=== PATIENT | female | born 1970 | race African-American/Black ===

== ENCOUNTER → 2016-08-20 | Outpatient (CLI) | payer OTHER ==
[2016-08-20 17:20] LABS: ABSOLUTE EOSINOPHILS # (AUTO) 0.2 10^3/uL (0.0-0.6); ABSOLUTE LYMPHOCYTES (AUTO) 1.9 10^3/uL (0.5-4.7); ABSOLUTE MONOCYTES (AUTO) 0.5 10^3/uL (0.1-1.4); ABSOLUTE NEUT (AUTO) 2.1 10^3/uL (1.7-8.2); BASOPHILS % (AUTO) 0.6 % (0-2); EOSINOPHILS % (AUTO) 4.9 % (0-6); HEMATOCRIT 33.7 % (36.0-47.0); HEMOGLOBIN 11.3 g/dL (12.0-15.5); HGB HCT DIFFERENCE 0.2; MEAN CORPUSCULAR HEMOGLOBIN 27.2 pg (27.0-33.4); MEAN CORPUSCULAR HGB CONC 33.6 g/dL (32.0-36.0); MEAN CORPUSCULAR VOLUME 81 fl (80-97); MONOCYTES % (AUTO) 9.9 % (3-13); RED BLOOD COUNT 4.17 10^6/uL (3.72-5.28); RED CELL DISTRIBUTION WIDTH 14.7 % (11.5-14.0); SEGMENTED NEUTROPHILS % (AUTO) 43.6 % (42-78); WHITE BLOOD COUNT 4.7 10^3/uL (4.0-10.5)
[2016-08-20 17:37] LABS: ANION GAP 11 (5-19); BLOOD UREA NITROGEN 12 mg/dL (7-20); CALCIUM 9.6 mg/dL (8.4-10.2); CARBON DIOXIDE 27 mmol/L (22-30); CHLORIDE 103 mmol/L (98-107); CREATININE RESULT 0.55 mg/dL (0.52-1.25); GLUCOSE 96 mg/dL (75-110); POTASSIUM 4.2 mmol/L (3.6-5.0); SODIUM 141.1 mmol/L (137-145)
== END ==
LOC: OD 15:19
PROVIDERS: ATTEND Internal Medicine Nephrology
DX: N05.2 Unspecified nephritic syndrome with diffuse membranous glomerulonephritis (principal); R80.9 Proteinuria, unspecified; D50.9 Iron deficiency anemia, unspecified; E55.9 Vitamin D deficiency, unspecified
CPT/HCPCS: 36415; 80048; 82306; 82728; 83540; 83550; 85025

== ENCOUNTER 2017-05-08 17:26 | Emergency (ER) | payer OTHER ==
[2017-05-08] MEDS ORDERED: VANCOMYCIN HCL INJ 1000 MG VIAL IV ONE ×2 (17:50→19:00)
--- NOTE | 2017-05-08 17:52 | ER Document Report ---
ED General - General Chief Complaint: Insect Bite Stated Complaint: LEFT LEG PAIN Time Seen by Provider: 05/08/17 17:39 Notes: 47-year-old female with "prediabetes" presents with left leg pain redness and swelling with fever and chills. First started 4 days ago, she was placed on ceftriaxone and cefuroxime 2 days ago by her primary care. She has been continuing to work and stand on her leg all day and has not been elevating it. Fever and chills have subsided. Her primary care saw the leg today and send her to the ER because the symptoms were resolving. Her primary care was also concerned about "blood clot." She denies varicosities or risk factors for clotting. When asked if she has a history of blood clots she states that one time her boyfriend gave her a Hickey which caused a "blood clot in my throat." She has no history of deep vein thrombosis. TRAVEL OUTSIDE OF THE [place] IN LAST 30 DAYS: No - Related Data Allergies/Adverse Reactions: ibuprofen [From Motrin] Allergy (Verified 05/08/17 17:29) metronidazole [From Flagyl] Allergy (Verified 05/08/17 17:29) Metronidazole HCl [From Flagyl] Allergy (Verified 05/08/17 17:29) seafood Allergy (Uncoded 08/07/12 14:02) Past Medical History - Social History Smoking Status: Unknown if Ever Smoked Family History: None - Past Medical History Cardiac Medical History: Reports: Hx Hypertension - meds x5 years, Lisinopril Rx 'ed to treat renal disease Denies: Hx Coronary Artery Disease, Hx Heart Attack Pulmonary Medical History: Denies: Hx Asthma, Hx Bronchitis, Hx COPD, Hx Pneumonia Neurological Medical History: Denies: Hx Cerebrovascular Accident, Hx Seizures Musculoskeltal Medical History: Denies Hx Arthritis - Immunizations Hx Diphtheria, Pertussis, Tetanus Vaccination: No Review of Systems - Review of Systems Notes: REVIEW OF SYSTEMS GEN: Denies fever, chills, weight loss ENT: Denies sore throat, nasal discharge, ear pain EYES: Denies blurry vision, eye pain, discharge CV: Denies chest pain, palpitations, edema RESP: Denies cough, shortness of breath, wheezing GI: Denies abdominal pain, nausea, vomiting, diarrhea MSK: Right leg pain SKIN: Red rash LYMPH: Denies swollen glands/lymph nodes NEURO: Denies headache, focal weakness or numbness, dizziness PSYCH: Denies depression, suicidal or homicidal ideation PHYSICAL EXAMINATION General: No acute distress, well-nourished Head: Atraumatic, normocephalic ENT: Mouth normal, oropharynx moist, no exudates or tonsillar enlargement Eyes: Conjunctiva normal, pupils equal, lids normal Neck: No JVD, supple, no guarding CVS: Normal rate, regular rhythm, no murmurs Resp: No resp distress, equal and normal breath sounds bilaterally GI: Nondistended, soft, no tenderness to palpation, no rebound or guarding Ext: Bilateral chronic appearing lower extremity edema with shiny skin, the left leg is slightly worse with the swelling, and there is a confluent erythematous rash from the sock line at the ankle up to the proximal calf which is tender and blanching. No bullae no abscesses no drainage. No Homans sign and no tenderness in the popliteal fossa. Back: No CVA or midline TTP Skin: No rash, warm Lymphatic: No lymphadeopathy noted Neuro: Awake, alert. Face symmetric. GCS 15. Physical Exam - Vital signs Vitals: Temp Pulse Resp BP Pulse Ox 98.4 F 106 H 14 143/91 H 98 05/08/17 17:36 05/08/17 17:36 05/08/17 17:36 05/08/17 17:36 05/08/17 17:36 Course - Re-evaluation Re-evalutation: Patient presents with left lower extremity cellulitis. Mildly tachycardic but not febrile. Appears nontoxic. Her primary was concerned for DVT, however her clinical picture perfectly matches cellulitis and she does not have risk factors for blood clots. I think the reason for lack of resolution is a combination of lack of elevation on her part as well as probable antibiotic choice. I do not think she is septic and I do not think this is a necrotizing infection. She will receive lab testing, and Accu-Chek to check her blood sugar as well as a dose of vancomycin. At that point we will decide whether she can go home with augmented antibiotic coverage and aggressive elevation or needs to be admitted. I do not believe she requires an ultrasound at this time. 05/08/17 17:54 05/08/17 18:50 Patient receiving vancomycin. Legs elevated. Labs are normal. Patient will be discharged home with Bactrim and Keflex and aggressive elevation. She will follow up with primary care with her scheduled appointment on Friday. All questions answered. I have discussed with the patient there likely diagnosis, aftercare plan, follow-up plans and my usual and customary return precautions. They verbalized understanding of this. - Vital Signs Vital signs: Temp Pulse Resp BP Pulse Ox 98.4 F 106 H 14 143/91 H 98 05/08/17 17:36 05/08/17 17:36 05/08/17 17:36 05/08/17 17:36 05/08/17 17:36 - Laboratory Result Diagrams: 05/08/17 17:57 05/08/17 17:57 Laboratory results interpreted by me: 05/08/17 17:57 Hgb 11.4 L Hct 34.0 L RDW 14.3 H Discharge - Discharge Clinical Impression: Cellulitis of left lower extremity Condition: Good Disposition: HOME, SELF-CARE Instructions: Cellulitis ([facility]) Additional Instructions: I am increasing the coverage of your antibiotics and I would like you to take the next 3 days off of work, and aggressively elevate her leg above your heart for 4 hours a day at minimum. If you are still not better after 3 days he can return to the emergency room for further workup. Please follow-up with your primary care doctor to have your leg reassessed within 2-3 days. Take Tylenol and/or ibuprofen for pain. Prescriptions: Cephalexin Monohydrate [Keflex 500 mg Capsule] 500 mg PO Q6H 20 Days capsule Sulfamethoxazole/Trimethoprim [Bactrim Ds Tablet] 1 each PO BID #20 tablet Forms: Return to Work
[2017-05-08 18:15] LABS: ABSOLUTE EOSINOPHILS # (AUTO) 0.1 10^3/uL (0.0-0.6); ABSOLUTE LYMPHOCYTES (AUTO) 3.2 10^3/uL (0.5-4.7); ABSOLUTE MONOCYTES (AUTO) 0.7 10^3/uL (0.1-1.4); ABSOLUTE NEUT (AUTO) 4.6 10^3/uL (1.7-8.2); BASOPHILS % (AUTO) 0.4 % (0-2); EOSINOPHILS % (AUTO) 1.7 % (0-6); HEMOGLOBIN 11.4 g/dL (12.0-15.5); HGB HCT DIFFERENCE 0.2; LYMPHOCYTES % (AUTO) 36.7 % (13-45); MEAN CORPUSCULAR HEMOGLOBIN 27.4 pg (27.0-33.4); MEAN CORPUSCULAR HGB CONC 33.6 g/dL (32.0-36.0); MEAN CORPUSCULAR VOLUME 82 fl (80-97); MONOCYTES % (AUTO) 8.3 % (3-13); RED BLOOD COUNT 4.17 10^6/uL (3.72-5.28); RED CELL DISTRIBUTION WIDTH 14.3 % (11.5-14.0); SEGMENTED NEUTROPHILS % (AUTO) 52.9 % (42-78); WHITE BLOOD COUNT 8.6 10^3/uL (4.0-10.5)
[2017-05-08 18:41] LABS: ANION GAP 14 (5-19); BLOOD UREA NITROGEN 11 mg/dL (7-20); CALCIUM 9.3 mg/dL (8.4-10.2); CARBON DIOXIDE 24 mmol/L (22-30); CHLORIDE 106 mmol/L (98-107); CREATININE RESULT 0.82 mg/dL (0.52-1.25); GLUCOSE 100 mg/dL (75-110); POTASSIUM 3.6 mmol/L (3.6-5.0); SODIUM 144.1 mmol/L (137-145)
[2017-05-08 20:58] VITALS: BP 146/100
--- NOTE | 2017-05-10 09:40 | ER Document Report ---
Doctor's Note Notes: 05/10/17 09:40 Hetal called concerning the Keflex prescription for 20 days. Instructed them to make of her 20 pills or 5 days.
== END 2017-05-08 20:56 | disposition home or self-care (01) ==
LOC: ER 17:26
DX: L03.116 Cellulitis of left lower limb (principal); M79.605 Pain in left leg; M79.89 Other specified soft tissue disorders; R50.9 Fever, unspecified
CPT/HCPCS: 99282; 96365; 96366; 36415; 87040; 85025; 80048; J3370

== ENCOUNTER 2017-05-14 20:15 | Inpatient (IN) | payer OTHER ==
[2017-05-14 23:00] LABS: ABSOLUTE EOSINOPHILS # (AUTO) 0.1 10^3/uL (0.0-0.6); ABSOLUTE LYMPHOCYTES (AUTO) 2.1 10^3/uL (0.5-4.7); ABSOLUTE MONOCYTES (AUTO) 0.6 10^3/uL (0.1-1.4); ABSOLUTE NEUT (AUTO) 5.9 10^3/uL (1.7-8.2); BASOPHILS % (AUTO) 0.4 % (0-2); EOSINOPHILS % (AUTO) 1.5 % (0-6); LYMPHOCYTES % (AUTO) 23.8 % (13-45); MEAN CORPUSCULAR HEMOGLOBIN 27.3 pg (27.0-33.4); MEAN CORPUSCULAR HGB CONC 33.4 g/dL (32.0-36.0); MEAN CORPUSCULAR VOLUME 82 fl (80-97); MONOCYTES % (AUTO) 7.4 % (3-13); RED BLOOD COUNT 3.69 10^6/uL (3.72-5.28); RED CELL DISTRIBUTION WIDTH 14.3 % (11.5-14.0); SEGMENTED NEUTROPHILS % (AUTO) 66.9 % (42-78); WHITE BLOOD COUNT 8.8 10^3/uL (4.0-10.5)
[2017-05-14] MEDS ORDERED: MORPHINE SULFATE 10 MG/ML INJ IV ONE (23:00)
[2017-05-14 23:06] LABS: ANION GAP 10 (5-19); BLOOD UREA NITROGEN 17 mg/dL (7-20); CALCIUM 9.7 mg/dL (8.4-10.2); CARBON DIOXIDE 23 mmol/L (22-30); CHLORIDE 106 mmol/L (98-107); CREATININE RESULT 1.14 mg/dL (0.52-1.25); GLUCOSE 117 mg/dL (75-110); POTASSIUM 3.9 mmol/L (3.6-5.0); SODIUM 138.9 mmol/L (137-145)
[2017-05-14 23:41] LABS: APPEARANCE,URINE SLIGHTLY-CLOUDY; BILIRUBIN,URINE NEGATIVE (NEGATIVE); GLUCOSE, URINE NEGATIVE (NEGATIVE); KETONES,URINE NEGATIVE (NEGATIVE); LEUKOCYTE ESTERASE,URINE NEGATIVE (NEGATIVE); NITRITE,URINE NEGATIVE (NEGATIVE); PROTEIN,URINE >=500 mg/dL (NEGATIVE); URINE SPECIFIC GRAVITY 1.025; UROBILINOGEN,URINE NEGATIVE mg/dL (<2.0)
[2017-05-15 00:12] LABS: ALANINE AMINOTRANSFERASE 32 U/L (9-52); ALBUMIN 3.2 g/dL (3.5-5.0); ALKALINE PHOSPHATASE 89 U/L (38-126); ASPARTATE AMINO TRANSFERASE 13 U/L (14-36); TOTAL PROTEIN 6.8 g/dL (6.3-8.2)
--- NOTE | 2017-05-15 00:15 | ER Document Report ---
ED General - General Chief Complaint: Leg Swelling Stated Complaint: ABNORMAL LABS,LEG SWELLING Time Seen by Provider: 05/14/17 22:47 Notes: Patient is a 47-year-old female presents with complaint of cellulitis. She has been on antibiotics for almost a week. She has been on Bactrim and Keflex. She had an ultrasound of the leg yesterday which showed no evidence of DVT. She denies any fevers during this entire course. She says the redness she has has darkened and is not as red however her swelling and edema continues to worsen throughout her leg. She does have a previous history of nephrotic syndrome. She is follow-up with Dr. Bo for this. She said typically the edema in her legs pretty equal but her left leg is much more swollen than her right at this point. No difficulty breathing. No other complaints at this time. She is unsure which type of nephrotic syndrome she has. He denies history of lupus, rheumatoid disease, or other autoimmune diseases. TRAVEL OUTSIDE OF THE [place] IN LAST 30 DAYS: No - Related Data Allergies/Adverse Reactions: ibuprofen [From Motrin] Allergy (Verified 05/14/17 20:16) metronidazole [From Flagyl] Allergy (Verified 05/14/17 20:16) Metronidazole HCl [From Flagyl] Allergy (Verified 05/14/17 20:16) seafood Allergy (Uncoded 05/14/17 20:16) Past Medical History - Social History Smoking Status: Unknown if Ever Smoked Frequency of alcohol use: None Drug Abuse: None Family History: None Patient has suicidal ideation: No Patient has homicidal ideation: No - Past Medical History Cardiac Medical History: Reports: Hx Hypertension - meds x5 years, Lisinopril Rx 'ed to treat renal disease Denies: Hx Coronary Artery Disease, Hx Heart Attack Pulmonary Medical History: Denies: Hx Asthma, Hx Bronchitis, Hx COPD, Hx Pneumonia Neurological Medical History: Denies: Hx Cerebrovascular Accident, Hx Seizures Renal/ Medical History: Denies: Hx Peritoneal Dialysis Musculoskeltal Medical History: Denies Hx Arthritis Past Surgical History: Reports: Hx Hysterectomy - Immunizations Hx Diphtheria, Pertussis, Tetanus Vaccination: No Review of Systems - Review of Systems Notes: My Normal Review Basic REVIEW OF SYSTEMS: CONSTITUTIONAL : Denies fever, chills, or sweats. Denies recent illness. EENT: Denies eye, ear, throat, or mouth pain or symptoms. Denies nasal or sinus congestion. RESPIRATORY: Denies cough, cold, or chest congestion. Denies shortness of breath, difficulty breathing, or wheezing. GASTROINTESTINAL: Denies abdominal pain. Denies nausea, vomiting, or diarrhea. Denies constipation. Last BM: MUSCULOSKELETAL: Swelling in left leg. SKIN: Denies rash or skin lesions. NEUROLOGICAL: Denies altered mental status or loss of consciousness. Denies headache. Denies weakness or paralysis or loss of use of either side. Denies problems with gait or speech. Denies sensory or motor loss. ALL OTHER SYSTEMS REVIEWED AND NEGATIVE. Physical Exam - Vital signs Vitals: Temp Pulse Resp BP Pulse Ox 98.9 F 103 H 18 150/97 H 100 05/14/17 20:35 05/14/17 20:35 05/14/17 20:35 05/14/17 20:35 05/14/17 20:35 - Notes Notes: General Appearance: Well nourished, alert, cooperative, no acute distress, no obvious discomfort. Vitals: reviewed, See vital signs table. Head: no swelling or tenderness to the head Eyes: PERRL, EOMI, Conjuctiva clear Mouth: No decreasd moisture Lungs: No wheezing, No rales, No rhonci, No accessory muscle use, good air exchange bilaterally. Heart: Normal rate, Regular rythm, No murmur, no rub Abdomen: Normal BS, soft, No rigidity, No abdominal tenderness, No guarding, no rebound, no abdominal masses, no organomegaly Extremities: strength 5/5 in all extremities, good pulses in all extremities, left leg is very swollen and tight. There is an area of faint redness on the medial midportion of the lower leg. The redness does not extend with the swelling itself. Pulses are intact. Right leg has some edema but is much less in comparison to the left leg. Skin: warm, dry, appropriate color, no rash Neuro: speech clear, oriented x 3, normal affect, responds appropriately to questions. Course - Re-evaluation Re-evalutation: 05/15/17 00:14 Patient has no cytosis no fever. Clinically her leg may have initially had a cellulitis by do not think that is a ongoing problem. My concern is that she is developing recurrence for nephrotic syndrome being that she has so much edema in her legs and her protein and urine is greater than 500. I did consider vasculitis as well; however, patient has no history of autoimmune disease. Patient is followed by Dr. Parker, environmental safety specialist. I did discuss the case with our hospitalist, Dr. Lobo, who agrees to accept the patient for further management and treatment workup of her leg swelling. Dictation of this chart was performed using voice recognition software; therefore, there may be some unintended grammatical errors. - Vital Signs Vital signs: Temp Pulse Resp BP Pulse Ox 98.9 F 103 H 18 150/97 H 100 05/14/17 20:35 05/14/17 20:35 05/14/17 20:35 05/14/17 20:35 05/14/17 20:35 - Laboratory Result Diagrams: 05/14/17 22:33 05/14/17 22:33 Laboratory results interpreted by me: 05/14/17 05/14/17 05/14/17 22:33 22:33 23:03 RBC 3.69 L Hgb 10.0 L Hct 30.0 L RDW 14.3 H Est GFR (Non-Af Amer) 51 L Glucose 117 H Urine Protein >=500 H Discharge - Discharge Clinical Impression: Leg swelling Condition: Stable Disposition: ADMITTED INPATIENT Admitting Provider: Hospitalist Unit Admitted: Medical Floor
[2017-05-15 00:23] LABS: BILIRUBIN,TOTAL < 0.1 mg/dL (0.2-1.3)
[2017-05-15] MEDS ORDERED: ACETAMINOPHEN 325 MG TABLET PO PRN (00:48)
[2017-05-15] MEDS ORDERED: ONDANSETRON HCL INJ/PF 4 MG/2 ML SDV IV PRN (00:48)
[2017-05-15 01:29] LABS: C-REACTIVE PROTEIN 15.6 mg/L (<10.0); URIC ACID 5.1 mg/dL (2.5-7.5)
--- NOTE | 2017-05-15 02:50 | PDOC H&P ---
History of Present Illness Admission Date/PCP: 05/15/17 00:23 Fabiana TROY MD History of Present Illness: DORIAN BELTRAN is a 47 year old female with past medical history of hypertension , anxiety, prediabetes, an unknown type of kidney disease who presents to the emergency department with complaints of cellulitis. Patient reports that approximately a week ago she woke up with a splotchy red rash on her left lower extremity and as this has progressed it has become increasingly swollen. She reports that she was initially placed on some antibiotics that she cannot recall the name of from her primary care physician, but on 05 10 she reported to the emergency department was placed on Septra and Keflex. Patient reports that last Friday she had fevers and chills but has had none since that time. She reports that the overall redness has improved but she feels that the swelling in her legs has gotten worse. She reports that the swelling is almost painful. Patient is found to have greater than 500 of protein in her urine and bilateral lower extremity edema. Patient has seen Dr. Parker of nephrology in the past. She is referred to the hospitalist service for possible nephrotic syndrome. Patient's medications are at bedside and include Lasix, losartan, hydralazine, Lexapro, and Norvasc as well as Keflex and Bactrim. Patient's medications are currently undergoing reconciliation. Current list is automatically generated by [employer] and does not reflect an accurate description of her medications. Due to the urgent/emergent nature of her condition, she is admitted without a full list. Past Medical History Cardiac Medical History: Reports: Hypertension - meds x5 years, Lisinopril Rx' ed to treat renal disease Denies: Coronary Artery Disease, Myocardial Infarction Pulmonary Medical History: Denies: Asthma, Bronchitis, Chronic Obstructive Pulmonary Disease (COPD), Pneumonia Neurological Medical History: Denies: Seizures Endocrine Medical History: Reports: Obesity, Other - Prediabetes Renal/ Medical History: Reports: Other - Some type of kidney disease Musculoskeltal Medical History: Denies: Arthritis Hematology: Reports: Anemia - currently p.o. iron daily Past Surgical History Past Surgical History: Reports: Cholecystectomy, Hysterectomy Social History Smoking Status: Never Smoker Frequency of Alcohol Use: Social Hx Recreational Drug Use: No Hx Prescription Drug Abuse: No - Advance Directive Resuscitation Status: Full Code Surrogate healthcare decision maker:: Pritesh Rouse, daughter Family History Family History: DM, Hypertension, Malignancy Parental Family History Reviewed: Yes Children Family History Reviewed: Yes Sibling(s) Family History Reviewed.: Yes Medication/Allergy Home Medications: Ferrous Sulfate PO DAILY 08/07/12 Furosemide [Lasix 40 mg Tablet] 20 mg PO BID 08/07/12 Hydrochlorothiazide [Hydrodiuril 25 mg Tablet] 25 mg PO QAM 08/07/12 Potassium Chloride [Klor-Con] 20 meq PO QAM 08/07/12 Atorvastatin Calcium [Lipitor 40 mg Tablet] 40 mg PO QHS 08/14/12 Losartan Potassium [Cozaar 50 Mg Tablet] 50 mg PO DAILY 08/14/12 Oxycodone HCl/Acetaminophen [Percocet 5-325 mg Tablet] 1 - 2 tab PO ASDIR PRN Cephalexin Monohydrate [Keflex 500 mg Capsule] 500 mg PO Q6H 20 Days capsule Sulfamethoxazole/Trimethoprim [Bactrim Ds Tablet] 1 each PO BID #20 tablet 05/08 Allergies/Adverse Reactions: ibuprofen [From Motrin] Allergy (Verified 05/14/17 20:16) metronidazole [From Flagyl] Allergy (Verified 05/14/17 20:16) Metronidazole HCl [From Flagyl] Allergy (Verified 05/14/17 20:16) seafood Allergy (Uncoded 05/14/17 20:16) Review of Systems Constitutional: PRESENT: as per HPI, chills, fever(s). ABSENT: headache(s), weight gain, weight loss Eyes: ABSENT: visual disturbances Ears: ABSENT: hearing changes Cardiovascular: PRESENT: edema. ABSENT: chest pain, dyspnea on exertion, orthropnea, palpitations Respiratory: ABSENT: cough, hemoptysis Gastrointestinal: ABSENT: abdominal pain, constipation, diarrhea, hematemesis, hematochezia, nausea, vomiting Genitourinary: ABSENT: dysuria, hematuria Musculoskeletal: ABSENT: joint swelling Integumentary: PRESENT: erythema, lesions, rash. ABSENT: pruritus, wounds Neurological: ABSENT: abnormal gait, abnormal speech, confusion, dizziness, focal weakness, syncope Psychiatric: ABSENT: anxiety, depression, homidical ideation, suicidal ideation Endocrine: ABSENT: cold intolerance, heat intolerance, polydipsia, polyuria Hematologic/Lymphatic: ABSENT: easy bleeding, easy bruising Physical Exam Vital Signs: Temp Pulse Resp BP Pulse Ox 98.7 F 89 16 137/78 H 96 05/15/17 02:11 05/15/17 02:11 05/15/17 02:11 05/15/17 02:11 05/15/17 02:11 General appearance: PRESENT: no acute distress, morbidly obese, well-developed, well-nourished Head exam: PRESENT: atraumatic, normocephalic Eye exam: PRESENT: conjunctiva pink, EOMI, PERRLA. ABSENT: scleral icterus Ear exam: PRESENT: normal external ear exam Mouth exam: PRESENT: moist, tongue midline Neck exam: ABSENT: carotid bruit, JVD, lymphadenopathy, thyromegaly Respiratory exam: PRESENT: clear to auscultation cora. ABSENT: rales, rhonchi, wheezes Cardiovascular exam: PRESENT: RRR. ABSENT: diastolic murmur, rubs, systolic murmur Pulses: PRESENT: normal dorsalis pedis pul Vascular exam: PRESENT: normal capillary refill GI/Abdominal exam: PRESENT: normal bowel sounds, soft. ABSENT: distended, guarding, mass, organolmegaly, rebound, tenderness Rectal exam: PRESENT: deferred Extremities exam: PRESENT: calf tenderness - Left lower extremity, full ROM, tenderness - Left lower extremity, +2 edema - Right lower extremity to mid will , other - 3+ edema of her left lower extremity. ABSENT: clubbing Neurological exam: PRESENT: alert, awake, oriented to person, oriented to place , oriented to time, oriented to situation, CN II-XII grossly intact. ABSENT: motor sensory deficit Psychiatric exam: PRESENT: appropriate affect, normal mood. ABSENT: homicidal ideation, suicidal ideation Skin exam: PRESENT: dry, intact, rash - Mild blotchy erythema on the medial pretibial area without confluence or induration, warm. ABSENT: cyanosis Results Laboratory Results: 05/14/17 05/14/17 05/14/17 22:33 22:33 22:33 WBC 8.8 Hgb 10.0 L Hct 30.0 L Plt Count 406 ESR Sodium 138.9 Potassium 3.9 Chloride 106 Carbon Dioxide 23 BUN 17 Creatinine 1.14 Est GFR ( Amer) > 60 Glucose 117 H Total Bilirubin < 0.1 L C-Reactive Protein Albumin 3.2 L TSH Urine Protein Urine WBC (Auto) U Hyaline Cast (Auto) Granular Casts (Auto) 05/14/17 05/14/17 05/14/17 22:33 22:33 23:03 WBC Hgb Hct Plt Count ESR Sodium Potassium Chloride Carbon Dioxide BUN Creatinine Est GFR ( Amer) Glucose Total Bilirubin C-Reactive Protein 15.6 H Albumin TSH 4.48 Urine Protein >=500 H Urine WBC (Auto) 8 U Hyaline Cast (Auto) 4 Granular Casts (Auto) 44 05/15/17 00:29 WBC Hgb Hct Plt Count ESR 109 H Sodium Potassium Chloride Carbon Dioxide BUN Creatinine Est GFR ( Amer) Glucose Total Bilirubin C-Reactive Protein Albumin TSH Urine Protein Urine WBC (Auto) U Hyaline Cast (Auto) Granular Casts (Auto) Assessment & Plan - Diagnosis (1) Nephrotic syndrome Is this a current diagnosis for this admission?: Yes Plan: Concerns for nephrotic syndrome in this patient. Patient has low albumin, elevated protein in the urine, and edema. Will obtain a 24-hour urine for protein and creatinine. Obtain VENITA Consult Dr. Parker whom she has seen in the past Place patient on Lasix and losartan (2) Cellulitis of left lower extremity Is this a current diagnosis for this admission?: Yes Plan: Patient has shown the serial pictures from her phone and it appears as though her cellulitis is actually improved over the past week. Will continue patient on Ancef (3) Hypertension Qualifiers: Hypertension type: unspecified Qualified Code(s): I10 - Essential (primary ) hypertension Is this a current diagnosis for this admission?: Yes Plan: Continue patient's home medications Patient was recently started on hydralazine, consider drug-induced lupus. (4) Leg swelling Is this a current diagnosis for this admission?: Yes Plan: Obtain lower extremity Dopplers (5) Morbid obesity with BMI of 40.0-44.9, adult Is this a current diagnosis for this admission?: Yes Plan: Patient is advised to engage actively in weight loss and increase activity as tolerated under the guidance of her primary care physician. - Time Time Spent: 50 to 70 Minutes Medications reviewed and adjusted accordingly: Yes Within: Other - Inpatient Certification Based on my medical assessment, after consideration of the patient's comorbidities, presenting symptoms, or acuity I expect that the services needed warrant INPATIENT care.: Yes - Upon improvement of symptomatology I certify that my determination is in accordance with my understanding of Medicare's requirements for reasonable and necessary INPATIENT services [42 CFR 412.3e].: Yes Medical Necessity: Risk of Complication if Not Cared For in Hospital, Risk of Diagnosis Which Will Require Inpatient Eval/Care/Monitoring Post Hospital Care: D/C Network Architect Manager Documentation
[2017-05-15] MEDS ORDERED: CEFAZOLIN INJ 1 GM VIAL ONE (03:24)
[2017-05-15] MEDS: CEFAZOLIN 2 GM/D5W RTU 2 GM/50 ML RTUPB IV SCH ×3 (05:23→17:23)
[2017-05-15] MEDS: HEPARIN SOD (PORCINE) 5,000 UNIT/ML 1 ML SYRINGE SUBCUT SCH ×3 (05:40→22:47)
[2017-05-15 06:37] LABS: CHOLESTEROL 212.66 mg/dL (0-200); Direct HDL 58 mg/dL (>40); TRIGLYCERIDES 101 mg/dL (<150)
[2017-05-15 06:47] LABS: DIRECT LDL 126 mg/dL (<100)
[2017-05-15] MEDS: OXYCODONE-ACETAMINOPHEN 5-325 MG TABLET PO PRN (10:51)
[2017-05-15] MEDS: FUROSEMIDE 40 MG TABLET PO SCH ×2 (10:52→17:22)
[2017-05-15] MEDS: LOSARTAN POTASSIUM 50 MG TABLET PO SCH ×2 (10:53→22:47)
[2017-05-15] MEDS: MORPHINE SULFATE 10 MG/ML INJ IV PRN ×2 (12:36→22:47)
--- NOTE | 2017-05-15 16:37 | PDOC PROGRESS REPORT ---
Subjective Progress Note for:: 05/15/17 Subjective:: This is a follow-up visit for left lower extremity cellulitis Reason For Visit: NEPHROTIC SYNDROME Physical Exam Vital Signs: Temp Pulse Resp BP Pulse Ox 98.7 F 89 12 111/78 93 05/15/17 07:55 05/15/17 07:55 05/15/17 07:55 05/15/17 07:55 05/15/17 07:55 Intake & Output 05/14/17 05/15/17 05/16/17 06:59 06:59 06:59 Intake Total 0 Output Total 0 Balance 0 Weight 108.2 kg GENERAL: This is a well-developed well-nourished obese -Portuguese female resting in bed currently in no acute distress. HEART: Regular rate and rhythm. No murmurs, rubs or gallops. LUNGS: Clear to auscultation bilaterally with equal rise and fall of the chest. ABDOMEN: Soft, nontender, nondistended with normoactive bowel sounds EXTREMETIES: No clubbing, cyanosis or edema on the left. There is 2+ pitting edema on the right foot extending all the way up to the shins.. 2+ peripheral pulses in the right lower extremity. The left lower extremity pulses cannot be palpated secondary to edema. Negative Homans NEURO: Awake, alert and oriented 3. Cranial nerves II through XII are grossly intact. Skin: Left lower extremity is edematous and slightly erythematous. Resolving erythema is noted from the ankle up through the will. No evidence of fungal elements between the toes. Results Laboratory Results: 05/15/17 06:11 Triglycerides 101 Cholesterol 212.66 H LDL Cholesterol Direct 126 H VLDL Cholesterol 20.0 HDL Cholesterol 58 Assessment & Plan - Diagnosis (1) Hypertension Qualifiers: Hypertension type: unspecified Qualified Code(s): I10 - Essential (primary ) hypertension Is this a current diagnosis for this admission?: Yes Plan: Continue home meds (2) Leg swelling Is this a current diagnosis for this admission?: Yes Plan: Homans sign negative. We will see how her leg looks in the morning. (3) Morbid obesity with BMI of 40.0-44.9, adult Is this a current diagnosis for this admission?: Yes Plan: Weight loss through dietary changes and exercise as tolerated (4) Nephrotic syndrome Is this a current diagnosis for this admission?: Yes Plan: 24 hour urine protein has been ordered. Awaiting nephrology consultation. (5) Cellulitis of left lower extremity Is this a current diagnosis for this admission?: Yes Plan: Appears to be much improved according to the patient and by description from the H&P. Continue current antibiotics. I did not note any fungal elements of the toes or any open wounds to account for why the patient cellulitis happen. Most likely she suffered a neck or scraped that she was unaware of. - Time Time Spent with patient: 15-24 minutes
--- NOTE | 2017-05-15 17:00 | XCELERA REPORT ---
[address] [address] Lower Extremity Venous Evaluation Name: DORIAN BELTRAN Age: 47 yrs Gender: Female : 1970 Patient Status: [facility] Study Date: 05/15/2017 08:53 AM Procedure: Color flow and duplex imaging bilaterally of the veins of the lower extremities as well as the Common Femoral veins. Reason For Study: concern for dvt Ordering Physician: PINKY PAPPAS Performed By: Renate Crouch Right Sided Venous Evaluation Normal vessel filling wall to wall, compression and augmentation as well as Colour flow down to the infrageniculate veins. Left Sided Venous Evaluation Normal vessel filling wall to wall, compression and augmentation as well as Colour flow down to the infrageniculate veins. Interpretation Summary No duplex evidence of DVT or obstruction in the bilateral lower extremities. : PINKY PAPPAS > Fuentes Rogers
--- NOTE | 2017-05-15 19:09 | PDOC CONSULTATION ---
Consultation Consult Date: 05/15/17 Attending physician:: PINKY PAPPAS Consult reason:: I was asked me Dr. Pappas to see the patient due to possible nephrotic syndrome. History of Present Illness Admission Date/PCP: 05/15/17 00:23 MILES TROY MD History of Present Illness: DORIAN BELTRAN is a 47 year old female with past medical history of hypertension , anxiety, prediabetes, membranous nephropathy who presents to the emergency department with complaints of cellulitis. Patient reports that approximately 10 days ago she woke up with a splotchy red rash on her left lower extremity and as this has progressed it has become increasingly swollen. She reports that she was initially placed on some antibiotics that she cannot recall the name of from her primary care physician which she took only for a couple of days , but on 05/10 she reported to the emergency department was placed on Septra and Keflex. Patient reports that last Friday she had fevers and chills but has had none since that time. 2 days ago she followed up with her primary care physician in some blood work was obtained along with a left leg ultrasound looking for DVT. She was told that there was no blood clot at that time. Yesterday the blood work apparently got resulted and she got a call from her primary care provider to go to the emergency room. She reports that the overall redness has improved but she feels that the swelling in her legs has gotten worse. She reports that the swelling is almost painful. Patient is found to have greater than 500 of protein in her urine and bilateral lower extremity edema. She was then admitted and was started on IV Ancef. A 24-hour urine collection was also started this morning. While her left leg has been swollen with erythematous warm lesions her right leg has been okay since her problem with the left leg started. She denied any shortness of breath, any more fevers, nausea nor vomiting. She has some loose stools from the antibiotics. Patient is known to me with history of membranous nephropathy proven with kidney biopsy done in November. Patient went into complete remission and has been maintained on losartan for the last couple years. The patient's last proteinuria is only about 231 mg that was obtained August 2015. Patient's kidney function is usually normal with creatinine anywhere between 0.5-0.8. last time I saw the patient was July 2016. She missed her follow-up appointment in October and has not rescheduled since. Patient has been having problem also with uncontrolled hypertension more recently. She said she got started with hydralazine on April 01. Her blood pressure currently has been acceptable since admission. Past Medical History Cardiac Medical History: Reports: Hyperlipidemia, Hypertension-primary Endocrine Medical History: Reports: Obesity, Other - Prediabetes Complications of Diabetes: Reports: Autonomic Neuropathy Renal/ Medical History: Reports: Proteinuria, Other - Membranous nephropathy, status post kidney biopsy in 12/22/2008 GI Medical History: Reports: Other - History of abdominal hernia Psychiatric Medical History: Reports: Other - Anxiety Hematology Medical History: Reports Anemia Past Surgical History Past Surgical History: Reports: Section, Cholecystectomy, Herniorrhaphy , Hysterectomy, Orthopedic Surgery - Arthroscopic left knee surgery for torn meniscus Social History Information Source: Patient Lives with: Family Smoking Status: Never Smoker Frequency of Alcohol Use: Social Hx Recreational Drug Use: No Hx Prescription Drug Abuse: No - Advance Directive Resuscitation Status: Full Code Family History Family History: CVA - Maternal grandmother, Hyperlipidemia - Paternal grandfather and maternal grandmother, Hypertension - Maternal grandmother, Other - Heart disease on maternal grandfather Parental Family History Reviewed: Yes Children Family History Reviewed: Yes Sibling(s) Family History Reviewed.: Yes Medication/Allergy Home Medications: Amlodipine Besylate [Norvasc 10 mg Tablet] 10 mg PO DAILY 05/15/17 Atorvastatin Calcium [Lipitor 20 mg Tablet] 20 mg PO DAILY 05/15/17 Cephalexin [Cephalexin 500 MG Capsule] 500 mg PO Q6 05/15/17 Escitalopram Oxalate [Lexapro] 20 mg PO DAILY 05/15/17 Ferrous Sulfate [Feosol 325 mg Tablet] 325 mg PO DAILY 05/15/17 Hydralazine HCl [Apresoline 25 mg Tablet] 25 mg PO Q8 05/15/17 Losartan Potassium [Cozaar 100 mg Tablet] 100 mg PO DAILY 05/15/17 Potassium Chloride [Klor-Con] 20 meq PO DAILY 05/15/17 Sulfamethoxazole/Trimethoprim [Bactrim Ds Tablet] 1 tab PO Q12 05/15/17 Allergies/Adverse Reactions: ibuprofen [From Motrin] Allergy (Verified 05/14/17 20:16) metronidazole [From Flagyl] Allergy (Verified 05/14/17 20:16) Metronidazole HCl [From Flagyl] Allergy (Verified 05/14/17 20:16) seafood Allergy (Uncoded 05/14/17 20:16) Review of Systems All systems: reviewed and no additional remarkable complaints except as stated Review of Systems: Constitutional: ABSENT: fatigue, headache(s), weight gain, weight loss; admits fever and chills Eyes: ABSENT: visual disturbances Ears: ABSENT: hearing changes Cardiovascular: ABSENT: chest pain, dyspnea on exertion, orthropnea, palpitations; left leg swelling Respiratory: ABSENT: cough, dyspnea, hemoptysis Gastrointestinal: ABSENT: abdominal pain, constipation, hematemesis, hematochezia, nausea, vomiting; admits loose stools induced by antibiotics Genitourinary: ABSENT: dysuria, hematuria Musculoskeletal: ABSENT: joint swelling Integumentary: ABSENT: Wounds; admits left leg erythematous, warm, diffuse rashes Neurological: ABSENT: abnormal gait, abnormal speech, confusion, dizziness, focal weakness, numbness, syncope Psychiatric: ABSENT: anxiety, depression Endocrine: ABSENT: cold intolerance, heat intolerance, polydipsia, polyuria Hematologic/Lymphatic: ABSENT: easy bleeding, easy bruising, lymphadenopathy Physical Exam Vital Signs: Temp Pulse Resp BP Pulse Ox 98.6 F 88 12 139/84 H 95 05/15/17 11:47 05/15/17 11:47 05/15/17 11:47 05/15/17 11:47 05/15/17 11:47 Intake & Output 05/14/17 05/15/17 05/16/17 06:59 06:59 06:59 Intake Total 0 Output Total 0 Balance 0 Weight 108.2 kg Exam: General appearance: no acute distress, cooperative, well-developed, well- nourished Head exam: PRESENT: atraumatic, normocephalic Eye exam: PRESENT: Conjunctiva slightly pale, EOMI, PERRLA. ABSENT: conjunctival injection, scleral icterus Mouth exam: PRESENT: moist, neck supple, tongue midline Neck exam: PRESENT: full ROM. ABSENT: carotid bruit, JVD, lymphadenopathy, thyromegaly Respiratory exam: PRESENT: clear to auscultation bilaterally. ABSENT: rales, rhonchi, stridor, wheezes Cardiovascular exam: PRESENT: RRR, +S1, +S2. ABSENT: systolic murmur Pulses: PRESENT: normal radial pulses, normal dorsalis pedis pulses GI/Abdominal exam: PRESENT: normal bowel sounds, soft. ABSENT: guarding, mass, tenderness Rectal exam: deferred Extremities exam: PRESENT: full ROM. Grade 2 left leg edema, right lower extremity with almost negligible edema ABSENT: calf tenderness Musculoskeletal: PRESENT: full ROM. ABSENT: deformity Neurological exam: PRESENT: alert, Awake, Oriented to person, Oriented to place , Oriented to time, reflexes normal, CN II-XII grossly intact. ABSENT: motor sensory deficit Psychiatric exam: PRESENT: appropriate affect, normal mood. ABSENT: homicidal ideation, suicidal ideation Skin exam: PRESENT: intact, dry, warm. Positive for left leg erythematous, warm , patchy rash which seems to be improved compared to the last few days based on the picture that she has taken previously. Results Laboratory Results: 05/15/17 06:11 Triglycerides 101 Cholesterol 212.66 H LDL Cholesterol Direct 126 H VLDL Cholesterol 20.0 HDL Cholesterol 58 Laboratory 05/14/17 05/14/17 05/14/17 22:33 22:33 22:33 WBC 8.8 RBC 3.69 L Hgb 10.0 L Hct 30.0 L MCV 82 MCH 27.3 MCHC 33.4 RDW 14.3 H Plt Count 406 Seg Neutrophils % 66.9 Lymphocytes % 23.8 Monocytes % 7.4 Eosinophils % 1.5 Basophils % 0.4 Absolute Neutrophils 5.9 Absolute Lymphocytes 2.1 Absolute Monocytes 0.6 Absolute Eosinophils 0.1 Absolute Basophils 0.0 ESR Sodium 138.9 Potassium 3.9 Chloride 106 Carbon Dioxide 23 Anion Gap 10 BUN 17 Creatinine 1.14 Est GFR ( Amer) > 60 Est GFR (Non-Af Amer) 51 L Glucose 117 H Uric Acid Calcium 9.7 Total Bilirubin < 0.1 L Direct Bilirubin Neonat Total Bilirubin Not Reportable Neonat Direct Bilirubin Not Reportable Neonat Indirect Bili Not Reportable AST 13 L ALT 32 Alkaline Phosphatase 89 C-Reactive Protein Total Protein 6.8 Albumin 3.2 L Triglycerides Cholesterol LDL Cholesterol Direct VLDL Cholesterol HDL Cholesterol TSH Urine Color Urine Appearance Urine pH Ur Specific [place] Urine Protein Urine Glucose (UA) Urine Ketones Urine Blood Urine Nitrite Urine Bilirubin Urine Urobilinogen Ur Leukocyte Esterase Urine WBC (Auto) Urine RBC (Auto) U Hyaline Cast (Auto) Squamous Epi Cells Auto Granular Casts (Auto) Urine Mucus (Auto) Urine Ascorbic Acid 05/14/17 05/14/17 05/14/17 22:33 22:33 23:03 WBC RBC Hgb Hct MCV MCH MCHC RDW Plt Count Seg Neutrophils % Lymphocytes % Monocytes % Eosinophils % Basophils % Absolute Neutrophils Absolute Lymphocytes Absolute Monocytes Absolute Eosinophils Absolute Basophils ESR Sodium Potassium Chloride Carbon Dioxide Anion Gap BUN Creatinine Est GFR ( Amer) Est GFR (Non-Af Amer) Glucose Uric Acid 5.1 Calcium Total Bilirubin Direct Bilirubin Neonat Total Bilirubin Neonat Direct Bilirubin Neonat Indirect Bili AST ALT Alkaline Phosphatase C-Reactive Protein 15.6 H Total Protein Albumin Triglycerides Cholesterol LDL Cholesterol Direct VLDL Cholesterol HDL Cholesterol TSH 4.48 Urine Color YELLOW Urine Appearance SLIGHTLY-CLOUDY Urine pH 5.0 Ur Specific [place] 1.025 Urine Protein >=500 H Urine Glucose (UA) NEGATIVE Urine Ketones NEGATIVE Urine Blood NEGATIVE Urine Nitrite NEGATIVE Urine Bilirubin NEGATIVE Urine Urobilinogen NEGATIVE Ur Leukocyte Esterase NEGATIVE Urine WBC (Auto) 8 Urine RBC (Auto) 2 U Hyaline Cast (Auto) 4 Squamous Epi Cells Auto 2 Granular Casts (Auto) 44 Urine Mucus (Auto) MANY Urine Ascorbic Acid NEGATIVE 05/15/17 05/15/17 00:29 06:11 WBC RBC Hgb Hct MCV MCH MCHC RDW Plt Count Seg Neutrophils % Lymphocytes % Monocytes % Eosinophils % Basophils % Absolute Neutrophils Absolute Lymphocytes Absolute Monocytes Absolute Eosinophils Absolute Basophils ESR 109 H Sodium Potassium Chloride Carbon Dioxide Anion Gap BUN Creatinine Est GFR ( Amer) Est GFR (Non-Af Amer) Glucose Uric Acid Calcium Total Bilirubin Direct Bilirubin Neonat Total Bilirubin Neonat Direct Bilirubin Neonat Indirect Bili AST ALT Alkaline Phosphatase C-Reactive Protein Total Protein Albumin Triglycerides 101 Cholesterol 212.66 H LDL Cholesterol Direct 126 H VLDL Cholesterol 20.0 HDL Cholesterol 58 TSH Urine Color Urine Appearance Urine pH Ur Specific [place] Urine Protein Urine Glucose (UA) Urine Ketones Urine Blood Urine Nitrite Urine Bilirubin Urine Urobilinogen Ur Leukocyte Esterase Urine WBC (Auto) Urine RBC (Auto) U Hyaline Cast (Auto) Squamous Epi Cells Auto Granular Casts (Auto) Urine Mucus (Auto) Urine Ascorbic Acid Assessment & Plan - Diagnosis (1) Cellulitis of left lower extremity Is this a current diagnosis for this admission?: Yes Plan: Her presentation is consistent with this diagnosis to include fever, left leg erythematous rash with warmth over it and is currently responding to antibiotics. Her left leg swelling is most likely secondary to this as well. Continue IV antibiotics. I will increase her Lasix to 40 mg p.o. twice daily. Her maintenance dose is usually 40 mg daily. (2) Membranous nephropathy determined by biopsy Is this a current diagnosis for this admission?: Yes Plan: Status post kidney biopsy in November 2008. Has been in complete remission until I last saw her in July 2016 maintained on ARB, losartan. Currently urinalysis showed a significant amount of proteinuria. 24-hour urine collections for protein is currently being collected. Note that acute illnesses including infection like her cellulitis associated with fever can acutely and transiently increase her proteinuria. Nevertheless it is worse considering if the patient' s membranous nephropathy and an acute flare. Continue losartan. Will await results of her 24-hour urine collection. Hold hydralazine. (3) Acute renal insufficiency Is this a current diagnosis for this admission?: Yes Plan: Her elevated creatinine could be secondary to the Septra she was being given for the last few days. However there could be some slight worsening of her kidney function due to her acute infection as well. Monitor kidney function. (4) Hypertension Qualifiers: Hypertension type: unspecified Qualified Code(s): I10 - Essential (primary ) hypertension Is this a current diagnosis for this admission?: Yes Plan: Currently controlled on losartan and furosemide. Agree with holding off and possibly not continuing hydralazine moving forward. Patient was also on amlodipine which can be added if her blood pressure starts rising. (5) Anemia Is this a current diagnosis for this admission?: Yes - Notes Notes: Thank you very much for this consultation. I will follow the patient with you. - Time Time Spent: Greater than 70 Minutes
[2017-05-15] MEDS ORDERED: FUROSEMIDE 20 MG TABLET PO ONE (19:45)
[2017-05-16] MEDS: OXYCODONE-ACETAMINOPHEN 5-325 MG TABLET PO PRN (01:10)
[2017-05-16] MEDS: CEFAZOLIN 2 GM/D5W RTU 2 GM/50 ML RTUPB IV SCH ×5 (01:12→23:11)
[2017-05-16] MEDS: HEPARIN SOD (PORCINE) 5,000 UNIT/ML 1 ML SYRINGE SUBCUT SCH ×3 (05:19→21:17)
[2017-05-16 06:47] LABS: ABSOLUTE EOSINOPHILS # (AUTO) 0.2 10^3/uL (0.0-0.6); ABSOLUTE LYMPHOCYTES (AUTO) 2.1 10^3/uL (0.5-4.7); ABSOLUTE MONOCYTES (AUTO) 0.4 10^3/uL (0.1-1.4); ABSOLUTE NEUT (AUTO) 2.4 10^3/uL (1.7-8.2); BASOPHILS % (AUTO) 0.4 % (0-2); EOSINOPHILS % (AUTO) 3.4 % (0-6); HEMATOCRIT 28.9 % (36.0-47.0); HEMOGLOBIN 9.7 g/dL (12.0-15.5); HGB HCT DIFFERENCE 0.2; LYMPHOCYTES % (AUTO) 41.6 % (13-45); MEAN CORPUSCULAR HEMOGLOBIN 27.5 pg (27.0-33.4); MEAN CORPUSCULAR HGB CONC 33.5 g/dL (32.0-36.0); MEAN CORPUSCULAR VOLUME 82 fl (80-97); MONOCYTES % (AUTO) 7.8 % (3-13); RED BLOOD COUNT 3.52 10^6/uL (3.72-5.28); SEGMENTED NEUTROPHILS % (AUTO) 46.8 % (42-78)
[2017-05-16 07:06] LABS: ALANINE AMINOTRANSFERASE 109 U/L (9-52); ALBUMIN 2.9 g/dL (3.5-5.0); ALKALINE PHOSPHATASE 153 U/L (38-126); ANION GAP 9 (5-19); ASPARTATE AMINO TRANSFERASE 164 U/L (14-36); BLOOD UREA NITROGEN 11 mg/dL (7-20); CALCIUM 8.7 mg/dL (8.4-10.2); CARBON DIOXIDE 25 mmol/L (22-30); CHLORIDE 105 mmol/L (98-107); CREATININE RESULT 0.79 mg/dL (0.52-1.25); GLUCOSE 104 mg/dL (75-110); MAGNESIUM 1.8 mg/dL (1.6-2.3); POTASSIUM 3.9 mmol/L (3.6-5.0); SODIUM 139.4 mmol/L (137-145); TOTAL PROTEIN 6.1 g/dL (6.3-8.2)
[2017-05-16 07:09] LABS: BILIRUBIN,TOTAL < 0.1 mg/dL (0.2-1.3)
[2017-05-16 07:24] LABS: URINE CREATININE 123.3 mg/dL (15-278)
[2017-05-16] MEDS: FUROSEMIDE 40 MG TABLET PO SCH ×2 (10:42→17:20)
[2017-05-16] MEDS: LOSARTAN POTASSIUM 50 MG TABLET PO SCH ×2 (10:42→21:17)
--- NOTE | 2017-05-16 13:31 | PDOC PROGRESS REPORT ---
Subjective Progress Note for:: 05/16/17 Subjective:: I saw patient today lying down in bed. She agrees that her left leg rash is improving but she is still concerned because of the swelling on the left leg. I did increase her Lasix last night and she does say that she is going to the bathroom more. Her 24-hour urine collection has been resulted and it shows 837 mg of proteinuria. Otherwise she does not have any other complaints. Reason For Visit: NEPHROTIC SYNDROME Physical Exam Vital Signs: Temp Pulse Resp BP Pulse Ox 98.1 F 84 12 127/83 H 97 05/16/17 11:44 05/16/17 11:44 05/16/17 11:44 05/16/17 11:44 05/16/17 11:44 Intake & Output 05/15/17 05/16/17 05/17/17 06:59 06:59 06:59 Intake Total 0 1080 Output Total 0 1100 Balance 0 -20 Weight 108.2 kg 109.8 kg 109.8 kg Exam: General appearance: PRESENT: no acute distress, cooperative, well-developed, well-nourished Head exam: PRESENT: atraumatic, normocephalic Eye exam: PRESENT: conjunctiva slightly pale, PERRLA. ABSENT: scleral icterus Neck exam: ABSENT: JVD Respiratory exam: PRESENT: Normal breath sounds. ABSENT: crackles, rales, rhonchi, unlabored, wheezes Cardiovascular exam: PRESENT: Regular rate rhythm -+S1, +S2. ABSENT: diastolic murmur, systolic murmur GI/Abdominal exam: PRESENT: normal bowel sounds, soft. ABSENT: guarding, mass, tenderness Extremities exam: Left leg lower extremity grade 2 edema with very minimal trace edema on the right leg Neurological exam: PRESENT: alert, awake, oriented to person, place and time. Skin exam: PRESENT: dry, warm, erythema and warmth over her left leg rash is improving slowly. Results Laboratory Results: 05/16/17 06:04 05/16/17 06:04 05/16/17 05/16/17 05/16/17 06:04 06:04 06:30 WBC 5.0 RBC 3.52 L Hgb 9.7 L Hct 28.9 L MCV 82 MCH 27.5 MCHC 33.5 RDW 14.0 Plt Count 358 Seg Neutrophils % 46.8 Lymphocytes % 41.6 Monocytes % 7.8 Eosinophils % 3.4 Basophils % 0.4 Absolute Neutrophils 2.4 Absolute Lymphocytes 2.1 Absolute Monocytes 0.4 Absolute Eosinophils 0.2 Absolute Basophils 0.0 Sodium 139.4 Potassium 3.9 Chloride 105 Carbon Dioxide 25 Anion Gap 9 BUN 11 Creatinine 0.79 Est GFR ( Amer) > 60 Est GFR (Non-Af Amer) > 60 Glucose 104 Calcium 8.7 Magnesium 1.8 Total Bilirubin < 0.1 L AST 164 H ALT 109 H Alkaline Phosphatase 153 H Total Protein 6.1 L Albumin 2.9 L Ur 24 Hour Volume 900 Ur Total Protein 24 Hr 837 H Assessment & Plan - Diagnosis (1) Cellulitis of left lower extremity Is this a current diagnosis for this admission?: Yes Plan: Her presentation is consistent with this diagnosis to include fever, left leg erythematous rash with warmth over it and is currently responding to antibiotics. Her left leg swelling is most likely secondary to this as well more than her membranous nephropathy since it is asymmetrical. Continue IV antibiotics. I will increase her Lasix to 40 mg p.o. twice daily. Her maintenance dose is usually 40 mg daily. (2) Membranous nephropathy determined by biopsy Is this a current diagnosis for this admission?: Yes Plan: Status post kidney biopsy in November 2008. Has been in complete remission until I last saw her in July 2016 maintained on ARB, losartan. Currently urinalysis showed a significant amount of proteinuria which is a slightly increased from last time we checked in the office but nevertheless is still less than 1 g. Note that his current infection and cellulitis with fever can increase the proteinuria. Continue losartan. Hold hydralazine. (3) Acute renal insufficiency Is this a current diagnosis for this admission?: Yes Plan: Her elevated creatinine could be secondary to the Septra she was being given for the last few days. However there could be some slight worsening of her kidney function due to her acute infection as well. Kidney function improved and back to baseline today. (4) Hypertension Qualifiers: Hypertension type: unspecified Qualified Code(s): I10 - Essential (primary ) hypertension Is this a current diagnosis for this admission?: Yes Plan: Currently controlled on losartan and furosemide. Agree with holding off and possibly not continuing hydralazine moving forward. Patient was also on amlodipine which can be added if her blood pressure starts rising. (5) Anemia Is this a current diagnosis for this admission?: Yes (6) Elevated liver enzymes Is this a current diagnosis for this admission?: Yes - Time Time with patient: 15-25 minutes
[2017-05-16 13:38] LABS: JO-1 ANTIBODY (ANACOMP) <0.2 AI (0.0-0.9)
--- NOTE | 2017-05-16 17:19 | PDOC PROGRESS REPORT ---
Subjective Subjective:: This is a follow-up visit for left lower extremity cellulitis Reason For Visit: NEPHROTIC SYNDROME Physical Exam Vital Signs: Temp Pulse Resp BP Pulse Ox 98.1 F 84 12 127/83 H 97 05/16/17 11:44 05/16/17 11:44 05/16/17 11:44 05/16/17 11:44 05/16/17 11:44 Intake & Output 05/15/17 05/16/17 05/17/17 06:59 06:59 06:59 Intake Total 0 1080 300 Output Total 0 1100 850 Balance 0 -20 -550 Weight 108.2 kg 109.8 kg 109.8 kg GENERAL: This is a well-developed well-nourished obese -[place] female resting in bed currently in no acute distress. HEART: Regular rate and rhythm. No murmurs, rubs or gallops. LUNGS: Clear to auscultation bilaterally with equal rise and fall of the chest. ABDOMEN: Soft, nontender, nondistended with normoactive bowel sounds EXTREMETIES: No clubbing, cyanosis or edema on the left. There is 2+ pitting edema on the right foot extending all the way up to the shins. 2+ peripheral pulses in the right lower extremity. The left lower extremity pulses cannot be palpated secondary to edema. NEURO: Awake, alert and oriented 3. Cranial nerves II through XII are grossly intact. Skin: Left lower extremity is edematous and erythema has mostly resolved. Results Laboratory Results: 05/16/17 06:04 05/16/17 06:04 05/16/17 05/16/17 05/16/17 06:04 06:04 06:30 WBC 5.0 RBC 3.52 L Hgb 9.7 L Hct 28.9 L MCV 82 MCH 27.5 MCHC 33.5 RDW 14.0 Plt Count 358 Seg Neutrophils % 46.8 Lymphocytes % 41.6 Monocytes % 7.8 Eosinophils % 3.4 Basophils % 0.4 Absolute Neutrophils 2.4 Absolute Lymphocytes 2.1 Absolute Monocytes 0.4 Absolute Eosinophils 0.2 Absolute Basophils 0.0 Sodium 139.4 Potassium 3.9 Chloride 105 Carbon Dioxide 25 Anion Gap 9 BUN 11 Creatinine 0.79 Est GFR ( Amer) > 60 Est GFR (Non-Af Amer) > 60 Glucose 104 Calcium 8.7 Magnesium 1.8 Total Bilirubin < 0.1 L AST 164 H ALT 109 H Alkaline Phosphatase 153 H Total Protein 6.1 L Albumin 2.9 L Ur 24 Hour Volume 900 Ur Total Protein 24 Hr 837 H Assessment & Plan - Diagnosis (1) Hypertension Qualifiers: Hypertension type: unspecified Qualified Code(s): I10 - Essential (primary ) hypertension Is this a current diagnosis for this admission?: Yes Plan: Continue home meds (2) Leg swelling Is this a current diagnosis for this admission?: Yes Plan: Homans sign negative. Her lower extremity still swollen despite almost complete resolution of the erythema related to her cellulitis. Will check ultrasound of the lower extremity. (3) Morbid obesity with BMI of 40.0-44.9, adult Is this a current diagnosis for this admission?: Yes Plan: Weight loss through dietary changes and exercise as tolerated (4) Elevated liver enzymes Is this a current diagnosis for this admission?: Yes Plan: I am unclear why the patient's liver enzymes are now 3 times normal. The only new medications the patient is started on is Ancef. Continue to monitor. If they continue to rise tomorrow will check liver ultrasound. (5) Membranous nephropathy determined by biopsy Is this a current diagnosis for this admission?: Yes Plan: 24-hour urine shows protein less than 1 g. Nephrology is following. No intervention for now. (6) Lower extremity cellulitis Qualifiers: Laterality: left Qualified Code(s): L03.116 - Cellulitis of left lower limb Is this a current diagnosis for this admission?: Yes Plan: Much improved. Continue Ancef for today. Changed to clindamycin tomorrow. - Time Time Spent with patient: 15-24 minutes - Inpatient Certification Medical Necessity: Need Close Monitoring Due to Risk of Patient Decompensation
[2017-05-16] MEDS: MORPHINE SULFATE 10 MG/ML INJ IV PRN (21:18)
[2017-05-17 05:19] LABS: ALANINE AMINOTRANSFERASE 66 U/L (9-52); ALKALINE PHOSPHATASE 141 U/L (38-126); ANION GAP 8 (5-19); ASPARTATE AMINO TRANSFERASE 40 U/L (14-36); BILIRUBIN,DIRECT 0.2 mg/dL (0.0-0.4); BILIRUBIN,TOTAL 0.3 mg/dL (0.2-1.3); BLOOD UREA NITROGEN 11 mg/dL (7-20); CALCIUM 8.8 mg/dL (8.4-10.2); CARBON DIOXIDE 28 mmol/L (22-30); CHLORIDE 105 mmol/L (98-107); CREATININE RESULT 0.77 mg/dL (0.52-1.25); GLUCOSE 97 mg/dL (75-110); MAGNESIUM 1.9 mg/dL (1.6-2.3); SODIUM 140.7 mmol/L (137-145); TOTAL PROTEIN 6.3 g/dL (6.3-8.2)
[2017-05-17] MEDS: CEFAZOLIN 2 GM/D5W RTU 2 GM/50 ML RTUPB IV SCH ×2 (05:43→11:33)
[2017-05-17] MEDS: HEPARIN SOD (PORCINE) 5,000 UNIT/ML 1 ML SYRINGE SUBCUT SCH ×2 (05:43→13:33)
[2017-05-17] MEDS: LOSARTAN POTASSIUM 50 MG TABLET PO SCH (09:56)
[2017-05-17] MEDS: FUROSEMIDE 40 MG TABLET PO SCH (09:56)
[2017-05-17 12:27] VITALS: BP 146/81
[2017-05-17] MEDS ORDERED: FLUCONAZOLE 100 MG TABLET PO ONE (15:00)
--- NOTE | 2017-05-17 17:37 | PDOC DISCHARGE SUMMARY ---
General - Admit/Disc Date/PCP Admission Date/Primary Care Provider: 05/15/17 00:23 MILES TROY MD - Discharge Diagnosis (1) Hypertension Is this a current diagnosis for this admission?: Yes Summary: Continue home medications with the exception of HCTZ. (2) Leg swelling Is this a current diagnosis for this admission?: Yes Summary: Improved. (3) Morbid obesity with BMI of 40.0-44.9, adult Is this a current diagnosis for this admission?: Yes Summary: Weight loss through dietary changes and exercise. (4) Elevated liver enzymes Is this a current diagnosis for this admission?: Yes Summary: Nearly resolved. (5) Membranous nephropathy determined by biopsy Is this a current diagnosis for this admission?: Yes Summary: Follow-up with Dr. Parker as directed. (6) Lower extremity cellulitis Is this a current diagnosis for this admission?: Yes Summary: Much improved continue on clindamycin. - Additional Information Resuscitation Status: Full Code Prescriptions: Clindamycin HCl 600 mg PO Q8H #21 capsule Furosemide [Lasix 40 mg Tablet] 40 mg PO BID #6 tablet Home Medications: Amlodipine Besylate [Norvasc 10 mg Tablet] 10 mg PO DAILY 05/15/17 Atorvastatin Calcium [Lipitor 20 mg Tablet] 20 mg PO DAILY 05/15/17 Escitalopram Oxalate [Lexapro] 20 mg PO DAILY 05/15/17 Ferrous Sulfate [Feosol 325 mg Tablet] 325 mg PO DAILY 05/15/17 Losartan Potassium [Cozaar 100 mg Tablet] 100 mg PO DAILY 05/15/17 Potassium Chloride [Klor-Con] 20 meq PO DAILY 05/15/17 Clindamycin HCl 600 mg PO Q8H #21 capsule 05/17/17 Furosemide [Lasix 40 mg Tablet] 40 mg PO BID #6 tablet 05/17/17 History of Present Illness History of Present Illness: DORIAN BELTRAN is a 47 year old female who presents with lower extremity cellulitis. Please see the admission H&P below as outlined by the admitting physician. History of Present Illness Admission Date/PCP: 05/15/17 00:23 Fabiana TROY MD History of Present Illness: DORIAN BELTRAN is a 47 year old female with past medical history of hypertension , anxiety, prediabetes, an unknown type of kidney disease who presents to the emergency department with complaints of cellulitis. Patient reports that approximately a week ago she woke up with a splotchy red rash on her left lower extremity and as this has progressed it has become increasingly swollen. She reports that she was initially placed on some antibiotics that she cannot recall the name of from her primary care physician, but on 05 10 she reported to the emergency department was placed on Septra and Keflex. Patient reports that last Friday she had fevers and chills but has had none since that time. She reports that the overall redness has improved but she feels that the swelling in her legs has gotten worse. She reports that the swelling is almost painful. Patient is found to have greater than 500 of protein in her urine and bilateral lower extremity edema. Patient has seen Dr. Parker of nephrology in the past. She is referred to the hospitalist service for possible nephrotic syndrome. Hospital Course Hospital Course: Patient was admitted to the hospital and started on Ancef for her lower extremity cellulitis. She underwent bilateral lower extremity Dopplers which were negative for any DVT. She was seen by Dr. Parker for hyper proteinuria. It was felt that her nephrotic syndrome was stable since her total urinary protein was less than a gram. Patient will need to follow-up with Dr. Parker in the office as directed. The patient's lower extremity cellulitis markedly improved. She ultimately was sent out on clindamycin and instructed to follow with her regular physician. Patient was concerned at the risk of yeast infection with antibiotics so she was given a one-time dose of Diflucan 150 mg prior to discharge. The patient's lower extremity swelling on the left side improved prior to discharge with increase of her Lasix to 40 mg twice a day by Dr. Parker. Patient was given a prescription for 3 more days of increased Lasix. After which she may return to her usual dosing. Her hydralazine was discontinued at the recommendation of Dr. Parker. Her blood pressure was reasonable when she left. Her medications will need to be adjusted as an outpatient depending on her pressures. Prior to leaving it was noted that the patient's liver enzymes were 3 times higher than normal when she came in. Prior to discharge, the very next day, they were near normal again. It is not clear as to what caused the transient bump in her liver function tests. She will need to follow with her primary care physician. The patient was doing well and felt fit for discharge. Physical Exam Vital Signs: Temp Pulse Resp BP Pulse Ox 98.5 F 84 18 146/81 H 98 05/17/17 12:17 05/17/17 12:17 05/17/17 12:17 05/17/17 12:17 05/17/17 12:17 Intake & Output 05/16/17 05/17/17 05/18/17 06:59 06:59 06:59 Intake Total 1080 830 Output Total 1100 2150 Balance -20 -1320 Weight 109.8 kg 109.8 kg GENERAL: This is a well-developed well-nourished obese -[place] female resting in bed currently in no acute distress. HEART: Regular rate and rhythm. No murmurs, rubs or gallops. LUNGS: Clear to auscultation bilaterally with equal rise and fall of the chest. ABDOMEN: Soft, nontender, nondistended with normoactive bowel sounds EXTREMETIES: No clubbing, cyanosis or edema on the left. There is 1+ pitting edema on the right foot extending all the way up to the shins. 2+ peripheral pulses in the right lower extremity. NEURO: Awake, alert and oriented 3. Cranial nerves II through XII are grossly intact. Skin: Left lower extremity is edematous and erythema has mostly resolved. Results Laboratory Results: 05/16/17 06:04 05/17/17 04:20 05/17/17 04:20 Sodium 140.7 Potassium 4.0 Chloride 105 Carbon Dioxide 28 Anion Gap 8 BUN 11 Creatinine 0.77 Est GFR ( Amer) > 60 Est GFR (Non-Af Amer) > 60 Glucose 97 Calcium 8.8 Magnesium 1.9 Total Bilirubin 0.3 AST 40 H ALT 66 H Alkaline Phosphatase 141 H Total Protein 6.3 Albumin 3.0 L Qualifiers PATEINT BEING DISCHARGED WITH ANY OF THE FOLLOWING DIAGNOSIS?: VTE (PE or DVT) VTE patient discharged on overlapping Therapy?: Yes Plan Time Spent: Less than 30 Minutes
== END 2017-05-17 14:50 | disposition home or self-care (01) | DRG 603 ==
LOC: ER 20:15 → EH 05-15 00:23 → 5 05-15 01:54
PROVIDERS: ADMIT Family Medicine; ATTEND Family Medicine
DX: L03.116 Cellulitis of left lower limb (principal); N04.9 Nephrotic syndrome with unspecified morphologic changes; N17.9 Acute kidney failure, unspecified; Z68.41 Body mass index [BMI] 40.0-44.9, adult; N02.2 Recurrent and persistent hematuria with diffuse membranous glomerulonephritis; R80.9 Proteinuria, unspecified; I10 Essential (primary) hypertension; D64.9 Anemia, unspecified; F41.9 Anxiety disorder, unspecified; R74.8 Abnormal levels of other serum enzymes; E66.01 Morbid (severe) obesity due to excess calories; Z79.899 Other long term (current) drug therapy
CPT/HCPCS: 36415; 80048; 80053; 80061; 80076; 81001; 82570; 83735; 84156; 84443; 84550; 85025; 85652; 86140; 86225; 86235; 87040; 93970; 96374; 99285; J0690; J1644; J2270

== ENCOUNTER → 2017-05-27 | Outpatient (CLI) | payer OTHER ==
[2017-05-27 12:44] LABS: APPEARANCE,URINE SLIGHTLY-CLOUDY; BILIRUBIN,URINE NEGATIVE (NEGATIVE); GLUCOSE, URINE NEGATIVE (NEGATIVE); KETONES,URINE NEGATIVE (NEGATIVE); LEUKOCYTE ESTERASE,URINE NEGATIVE (NEGATIVE); NITRITE,URINE NEGATIVE (NEGATIVE); PROTEIN,URINE >=500 mg/dL (NEGATIVE); URINE SPECIFIC GRAVITY 1.016; UROBILINOGEN,URINE NEGATIVE mg/dL (<2.0)
[2017-05-27 12:48] LABS: ABSOLUTE EOSINOPHILS # (AUTO) 0.1 10^3/uL (0.0-0.6); ABSOLUTE LYMPHOCYTES (AUTO) 1.8 10^3/uL (0.5-4.7); ABSOLUTE MONOCYTES (AUTO) 0.5 10^3/uL (0.1-1.4); ABSOLUTE NEUT (AUTO) 2.8 10^3/uL (1.7-8.2); BASOPHILS % (AUTO) 0.4 % (0-2); EOSINOPHILS % (AUTO) 2.2 % (0-6); HEMATOCRIT 30.9 % (36.0-47.0); HEMOGLOBIN 10.4 g/dL (12.0-15.5); HGB HCT DIFFERENCE 0.3; LYMPHOCYTES % (AUTO) 34.5 % (13-45); MEAN CORPUSCULAR HEMOGLOBIN 27.3 pg (27.0-33.4); MEAN CORPUSCULAR HGB CONC 33.8 g/dL (32.0-36.0); MEAN CORPUSCULAR VOLUME 81 fl (80-97); MONOCYTES % (AUTO) 9.8 % (3-13); RED BLOOD COUNT 3.82 10^6/uL (3.72-5.28); RED CELL DISTRIBUTION WIDTH 14.2 % (11.5-14.0); SEGMENTED NEUTROPHILS % (AUTO) 53.1 % (42-78); WHITE BLOOD COUNT 5.3 10^3/uL (4.0-10.5)
[2017-05-27 13:08] LABS: URINE CREATININE 136.7 mg/dL (15-278)
[2017-05-27 13:15] LABS: URINE PROTEIN 574.5 mg/dL (<12)
[2017-05-27 13:17] LABS: ANION GAP 8 (5-19); BLOOD UREA NITROGEN 10 mg/dL (7-20); CALCIUM 9.9 mg/dL (8.4-10.2); CARBON DIOXIDE 29 mmol/L (22-30); CHLORIDE 104 mmol/L (98-107); CREATININE RESULT 0.71 mg/dL (0.52-1.25); GLUCOSE 87 mg/dL (75-110); POTASSIUM 4.2 mmol/L (3.6-5.0); SODIUM 141.1 mmol/L (137-145)
== END ==
LOC: OD 11:47
PROVIDERS: ATTEND Internal Medicine Nephrology
DX: N05.2 Unspecified nephritic syndrome with diffuse membranous glomerulonephritis (principal); R80.9 Proteinuria, unspecified; D50.9 Iron deficiency anemia, unspecified; E55.9 Vitamin D deficiency, unspecified
CPT/HCPCS: 36415; 80048; 81001; 82306; 82570; 82728; 83540; 83550; 84156; 85025

== ENCOUNTER → 2017-06-27 | Outpatient (CLI) | payer OTHER ==
[2017-06-27 18:03] LABS: UR PRO/CREAT RATIO RESULT 3.9 mg/mg (0.0-0.2); URINE CREATININE 602.2 mg/dL (15-278); URINE PROTEIN 2321.4 mg/dL (<12)
== END ==
LOC: OD 15:33
PROVIDERS: ATTEND Internal Medicine Nephrology
DX: N05.2 Unspecified nephritic syndrome with diffuse membranous glomerulonephritis (principal); R80.9 Proteinuria, unspecified; D50.9 Iron deficiency anemia, unspecified; E55.9 Vitamin D deficiency, unspecified
CPT/HCPCS: 36415; 82306; 82570; 84156

== ENCOUNTER → 2017-09-04 | Day surgery (SDC) | payer OTHER ==
[~2017-09-04] MED LIST: LIDOCAINE 2% INJ (20 MG/ML) 20 ML MDV ONE
--- NOTE | 2017-09-08 17:58 | WOMENS IMAGING REPORT ---
EXAM DESCRIPTION: U/S BREAST BX; LEFT DIG DX MAMMO NO CHG COMPLETED DATE/TIME: 09/04/2017 1:51 pm; 09/04/2017 4:27 pm REASON FOR STUDY: OTHER ABNORMAL AND INCONCLUSIVE FINDINGS; R92.8; R92.8 S/P US BX LEFT BRST FOR CLI P PLACEMENT R92.8 OTH ABN AND INCONCLUSIVE FINDINGS ON DX IMAGING OF DEISI COMPARISON: Prior mammograms 07/27/2008, 03/23/2009, 09/28/2009 here Outside mammograms/ tomosynthesis 07/09/2017 Outside left breast ultrasound 08/08/2017 TECHNIQUE: The procedure was discussed with the patient and the patient agreed to proceed. The patient was scanned and the area of interest in the 2 o'clock position 5 cm from the nipple of th e left breast was localized. This correlates with the area of concern on prior imaging studies. This area was targeted for ultrasound-guided core biopsy. After sterile skin prep and 3.5 ML local lidocaine 1% for skin and deep tissue anesthesia, a 14 gauge coaxial core biopsy needle was used to obtain several cores of tissue from the lesion. Under ultras ound guidance, a ribbon clip was placed in the areas sampled. There were no immediate post-procedure complications. MAMMOGRAM: Post-procedure two view mammogram was acquired in the digital mammogram suite. The clip wa s in the expected location. No significant hematoma. Pathology yields a diagnosis of benign lymph node, benign breast tissue with fibrocystic changes. Pathology is concordant. LIMITATIONS: None. FINDINGS: Ultrasound guided breast biopsy as described above. POST PROCEDURE MAMMOGRAMS FOR MARKER PLACEMENT: Yes IMPRESSION: ULTRASOUND-GUIDED CORE BIOPSY OF THE LEFT BREAST YIELDS A DIAGNOSIS OF benign lymph node and benign fibrocystic changes. This is concordant with the imaging appearance. BI-RADS 2 Benign findings. Patient can resume bilateral screening tomosynthesis in July 2018 COMMENT: These results were discussed directly with the patient, 1730 hours 09/08/2017. She understan ds this is a benign diagnosis and can return to screening mammography/tomosynthesis COMMUNICATION: As above Patient medication list reviewed: Yes- Quality ID# [id number]:Eligible professional attests to documenting i n the medical record they obtained, updated, or reviewed the patient's current medications. TECHNICAL DOCUMENTATION: JOB ID: [id number] [employer]- All Rights Reserved Reading location - IP/workstation name: [email or web address]
== END ==
LOC: WI 12:28
PROVIDERS: ATTEND Nurse Practitioner Community Health
PROC: 0HBU3ZX Excision of Left Breast, Percutaneous Approach, Diagnostic (ICD-10-PCS; principal; 2017-09-04)
DX: R92.8 Other abnormal and inconclusive findings on diagnostic imaging of breast (principal); N60.12 Diffuse cystic mastopathy of left breast
CPT/HCPCS: 88305 ×2; 88342; 19083; J3490

== ENCOUNTER → 2017-11-16 | Outpatient (CLI) | payer OTHER ==
[2017-11-16 16:41] LABS: ABSOLUTE BASOPHILS # (AUTO) 0.1 10^3/uL (0.0-0.2); ABSOLUTE EOSINOPHILS # (AUTO) 0.1 10^3/uL (0.0-0.6); ABSOLUTE LYMPHOCYTES (AUTO) 1.8 10^3/uL (0.5-4.7); ABSOLUTE MONOCYTES (AUTO) 0.4 10^3/uL (0.1-1.4); ABSOLUTE NEUT (AUTO) 3.3 10^3/uL (1.7-8.2); EOSINOPHILS % (AUTO) 1.6 % (0-6); HEMATOCRIT 32.5 % (36.0-47.0); LYMPHOCYTES % (AUTO) 31.6 % (13-45); MEAN CORPUSCULAR HEMOGLOBIN 27.2 pg (27.0-33.4); MEAN CORPUSCULAR HGB CONC 33.8 g/dL (32.0-36.0); MEAN CORPUSCULAR VOLUME 81 fl (80-97); MONOCYTES % (AUTO) 7.8 % (3-13); PLATELET COUNT 397 10^3/uL (150-450); RED BLOOD COUNT 4.04 10^6/uL (3.72-5.28); RED CELL DISTRIBUTION WIDTH 14.3 % (11.5-14.0); TOTAL CELLS COUNTED % (AUTO) 100 %; WHITE BLOOD COUNT 5.6 10^3/uL (4.0-10.5)
[2017-11-16 16:56] LABS: ALBUMIN 3.7 g/dL (3.5-5.0); ANION GAP 13 (5-19); BLOOD UREA NITROGEN 12 mg/dL (7-20); CALCIUM 9.8 mg/dL (8.4-10.2); CARBON DIOXIDE 27 mmol/L (22-30); CHLORIDE 103 mmol/L (98-107); GLUCOSE 122 mg/dL (75-110); IRON(TIBC) 40.7 ug/dL (37-170); POTASSIUM 3.7 mmol/L (3.6-5.0); SODIUM 142.8 mmol/L (137-145)
[2017-11-16 16:59] LABS: APPEARANCE,URINE SLIGHTLY-CLOUDY; BILIRUBIN,URINE NEGATIVE (NEGATIVE); COLOR,URINE AMBER; GLUCOSE, URINE NEGATIVE (NEGATIVE); KETONES,URINE NEGATIVE (NEGATIVE); LEUKOCYTE ESTERASE,URINE NEGATIVE (NEGATIVE); NITRITE,URINE NEGATIVE (NEGATIVE); PROTEIN,URINE >=500 mg/dL (NEGATIVE); URINE SPECIFIC GRAVITY 1.027
[2017-11-16 16:59] LABS: URINE PROTEIN 92.5 mg/dL (<12)
[2017-11-16 17:14] LABS: CREATININE 0.76 mg/dL (0.52-1.25)
[2017-11-16 17:25] LABS: 24 HOUR URINE PROTEIN RESULT 1425 mg/day (42-225)
[2017-11-16 17:26] LABS: URINE CREATININE 432.2 mg/dL (15-278)
[2017-11-16 17:32] LABS: UR PRO/CREAT RATIO RESULT 2.7 mg/mg (0.0-0.2); URINE PROTEIN 1152.4 mg/dL (<12)
== END ==
LOC: LAB 16:07
PROVIDERS: ATTEND Internal Medicine Nephrology
DX: N05.2 Unspecified nephritic syndrome with diffuse membranous glomerulonephritis (principal); E55.9 Vitamin D deficiency, unspecified; D50.9 Iron deficiency anemia, unspecified
CPT/HCPCS: 36415; 80048; 81001; 82040; 82306; 82570; 82575; 82728; 83540; 83550; 84156; 85025

== ENCOUNTER → 2017-11-28 | Outpatient (CLI) | payer OTHER ==
[2017-11-28 08:44] LABS: ANION GAP 10 (5-19); BLOOD UREA NITROGEN 10 mg/dL (7-20); CALCIUM 9.4 mg/dL (8.4-10.2); CARBON DIOXIDE 29 mmol/L (22-30); CHLORIDE 106 mmol/L (98-107); GLUCOSE 100 mg/dL (75-110); POTASSIUM 3.9 mmol/L (3.6-5.0); SODIUM 144.6 mmol/L (137-145)
== END ==
LOC: OD 07:41
PROVIDERS: ATTEND Internal Medicine Nephrology
DX: N05.2 Unspecified nephritic syndrome with diffuse membranous glomerulonephritis (principal)
CPT/HCPCS: 36415; 80048

== ENCOUNTER 2018-03-10 18:20 | Emergency (ER) | payer OTHER ==
[2018-03-10 18:40] VITALS: BP 147/88
--- NOTE | 2018-03-10 19:00 | RADIOLOGY REPORT (SQ) ---
EXAM DESCRIPTION: WRIST RIGHT 3 VIEWS COMPLETED DATE/TIME: 03/10/2018 6:52 pm REASON FOR STUDY: Wrist pain x 2 mo. Injured 2 mo. ago COMPARISON: None. NUMBER OF VIEWS: Three views. TECHNIQUE: AP, lateral, and oblique radiographic images acquired of the right wrist. LIMITATIONS: None. FINDINGS: MINERALIZATION: Normal. BONES: No acute fracture or dislocation. No worrisome bone lesions. Normal alignment. SOFT TISSUES: No soft tissue swelling. No foreign body. OTHER: No other significant finding. IMPRESSION: NEGATIVE STUDY OF THE RIGHT WRIST. NO RADIOGRAPHIC EVIDENCE OF ACUTE INJURY. TECHNICAL DOCUMENTATION: JOB ID: [id number] [employer]- All Rights Reserved Reading location - IP/workstation name: [email or web address]
[2018-03-10] MEDS ORDERED: LIDOCAINE 5% (700 MG) TRANSDERMAL ADH..PATCH TP ONE (19:30)
[2018-03-10] MEDS ORDERED: HYDROCODONE/ACETAMINOPHEN 5-325 MG (6 TAB/ER DISP) PO PRN (19:32)
--- NOTE | 2018-03-10 19:34 | ER Document Report ---
HPI - HPI Patient complains to provider of: Right wrist pain Onset: Other - 2 months Onset/Duration: Persistent Pain Level: 4 Context: Patient states that she was eating dinner tossing food to her dogs. Patient states that her dog grabbed at the food and she accidentally hit the dorsal aspect of her right forearm on his head. Patient states since then she has had right wrist swelling and pain. Patient did initially go to the [facility] and had x-rays performed that were negative. Patient does have a brace that she wears but states that it is very padded and very hot to wear. Patient denies any new injury. Associated Symptoms: Other - Right forearm pain Exacerbated by: Movement Relieved by: Denies Similar symptoms previously: No Recently seen / treated by doctor: Yes - ROS ROS below otherwise negative: Yes Systems Reviewed and Negative: Yes All other systems reviewed and negative - CONSTITUTIONAL Constitutional: DENIES: Fever - NEURO Neurology: DENIES: Weakness - REPRODUCTIVE Reproductive: DENIES: : - MUSCULOSKELETAL Musculoskeletal: REPORTS: Extremity pain, Swelling - DERM Skin Color: Normal Skin Problems: None Past Medical History - General Information source: Patient - Social History Smoking Status: Never Smoker Frequency of alcohol use: None Drug Abuse: None Occupation: [email or web address] Family History: DM, Hypertension, Malignancy - Past Medical History Cardiac Medical History: Reports: Hx Hypercholesterolemia, Hx Hypertension - meds x5 years, Lisinopril Rx'ed to treat renal disease Denies: Hx Coronary Artery Disease, Hx Heart Attack Pulmonary Medical History: Denies: Hx Asthma, Hx Bronchitis, Hx COPD, Hx Pneumonia Neurological Medical History: Denies: Hx Cerebrovascular Accident, Hx Seizures Renal/ Medical History: Denies: Hx Peritoneal Dialysis Musculoskeletal Medical History: Denies Hx Arthritis Past Surgical History: Reports: Hx Section, Hx Cholecystectomy, Hx Herniorrhaphy, Hx Hysterectomy, Hx Orthopedic Surgery - Arthroscopic left knee surgery for torn meniscus - Immunizations Hx Diphtheria, Pertussis, Tetanus Vaccination: No Vertical Provider Document - CONSTITUTIONAL Agree With Documented VS: Yes Exam Limitations: No Limitations General Appearance: WD/WN, No Apparent Distress - INFECTION CONTROL TRAVEL OUTSIDE OF THE [place] IN LAST 30 DAYS: No - HEENT HEENT: Atraumatic, Normocephalic - NECK Neck: Normal Inspection, Supple - RESPIRATORY Respiratory: Breath Sounds Normal, No Respiratory Distress - CARDIOVASCULAR Cardiovascular: Regular Rate, Regular Rhythm Pulses: Normal: Radial - BACK Back: Normal Inspection - MUSCULOSKELETAL/EXTREMETIES Musculoskeletal/Extremeties: MAEW, Tender - Tenderness to distal third of right forearm with 1+ edema, normal skin color and temperature, Edema Notes: Tenderness increases with palpation of ulnar aspect of right distal forearm - NEURO Level of Consciousness: Awake, Alert, Appropriate Motor/Sensory: No Motor Deficit, No Sensory Deficit - DERM Integumentary: Warm, Dry, No Rash Course - Vital Signs Vital signs: Temp Pulse Resp BP Pulse Ox 99.0 F 92 16 147/88 H 100 03/10/18 18:38 03/10/18 18:38 03/10/18 18:38 03/10/18 18:38 03/10/18 18:38 - Diagnostic Test Radiology reviewed: Reports reviewed Procedures - Immobilization Right Wrist Pre-Proc Neuro Vasc Exam: Normal Immobilizer type: Cock-up Performed by: PCT Post-Proc Neuro Vasc Exam: Normal Discharge - Discharge Clinical Impression: Wrist pain, right Condition: Stable Disposition: HOME, SELF-CARE Instructions: Oral Narcotic Medication ([facility]), Temporary Splint ([facility]) Additional Instructions: Return immediately for any new or worsening symptoms Followup with your primary care provider, call tomorrow to make a followup appointment Follow-up with your orthopedic surgeon for further evaluation of your persistent right wrist pain Prescriptions: Lidocaine [Lidoderm 5% (700 mg) Transdermal Patch] 1 patch TP DAILY #10 adh..patch Forms: Return to Work Referrals: KESHA TROY FNP-C [Primary Care Provider] - Follow up as needed [facility] [Provider Group] - Follow up as needed
== END 2018-03-10 19:45 | disposition home or self-care (01) ==
LOC: ER 18:20
DX: M25.531 Pain in right wrist (principal); W54.1XXA Struck by dog, initial encounter; Y93.89 Activity, other specified; R60.0 Localized edema; I10 Essential (primary) hypertension
CPT/HCPCS: 99283; 73110; L3908

== ENCOUNTER 2018-05-04 13:35 | Emergency (ER) | payer OTHER ==
[2018-05-04] MEDS ORDERED: ACETAMINOPHEN 325 MG TABLET PO ONE (14:31)
--- NOTE | 2018-05-04 15:17 | RADIOLOGY REPORT (SQ) ---
EXAM DESCRIPTION: ANKLE LEFT COMPLETE COMPLETED DATE/TIME: 05/04/2018 3:06 pm REASON FOR STUDY: turned ankle last night COMPARISON: None. NUMBER OF VIEWS: Three views. TECHNIQUE: AP, lateral, and oblique radiographic images acquired of the left ankle. LIMITATIONS: None. FINDINGS: MINERALIZATION: Normal. BONES: No acute fracture or dislocation. No worrisome bone lesions. JOINTS: No effusions. SOFT TISSUES: Severe, diffuse soft tissue swelling about the left ankle. No foreign body. OTHER: No other significant finding. IMPRESSION: No fracture or dislocation of the left ankle. The ankle mortise is intact. There is se татьяна, diffuse soft tissue swelling. Consider MRI to further evaluate ligamentous integrity. TECHNICAL DOCUMENTATION: JOB ID: [id number] [employer]- All Rights Reserved Reading location - IP/workstation name: [email or web address]
--- NOTE | 2018-05-04 16:01 | ER Document Report ---
ED Extremity Problem, Lower - General Chief Complaint: Ankle Injury Stated Complaint: LEFT ANKLE INJURY Time Seen by Provider: 05/04/18 14:13 Mode of Arrival: Wheelchair Information source: Patient Notes: 48-year-old female presented to ED for complaint of left ankle pain. She states she fell yesterday when she stepped on a brick and turned her ankle. She states she always has 3+ edema to her feet due to her blood pressure kidney and kidney disease. Is alert and oriented respirations regular and unlabored speaking in full sentences. TRAVEL OUTSIDE OF THE [place] IN LAST 30 DAYS: No - HPI Patient complains to provider of: Injury, Pain, Swelling Location: Ankle Occurred: Yesterday Where: Home, Outdoors Onset/Duration: Persistent Quality of pain: Throbbing Severity: Severe Pain Level: 5 Context: Other - Rolled her ankle. denies: Fell Recent injury: Yes Associated symptoms: Painful ambulation Exacerbated by: Hanging down, Movement, Walking Relieved by: Nothing - Related Data Allergies/Adverse Reactions: ibuprofen [From Motrin] Allergy (Verified 05/14/17 20:16) metronidazole [From Flagyl] Allergy (Verified 05/14/17 20:16) Metronidazole HCl [From Flagyl] Allergy (Verified 05/14/17 20:16) seafood Allergy (Uncoded 05/14/17 20:16) Past Medical History - General Information source: Patient - Social History Smoking Status: Never Smoker Chew tobacco use (# tins/day): No Frequency of alcohol use: Social Drug Abuse: None Occupation: Dispatcher Lives with: Family Family History: DM, Hypertension, Malignancy Patient has suicidal ideation: No Patient has homicidal ideation: No - Past Medical History Cardiac Medical History: Reports: Hx Hypercholesterolemia, Hx Hypertension - meds x5 years, Lisinopril Rx'ed to treat renal disease Pulmonary Medical History: Reports: None EENT Medical History: Reports: None Neurological Medical History: Reports: None Endocrine Medical History: Reports: None Renal/ Medical History: Reports: Hx Renal Insufficiency Malignancy Medical History: Reports: None GI Medical History: Reports: None Musculoskeletal Medical History: Reports Hx Musculoskeletal Trauma Skin Medical History: Reports None Psychiatric Medical History: Reports: None Traumatic Medical History: Reports: None Infectious Medical History: Reports: None Past Surgical History: Reports: Hx Section, Hx Cholecystectomy, Hx Herniorrhaphy, Hx Hysterectomy, Hx Orthopedic Surgery - Arthroscopic left knee surgery for torn meniscus - Immunizations Hx Diphtheria, Pertussis, Tetanus Vaccination: No Review of Systems - Review of Systems Constitutional: No symptoms reported EENT: No symptoms reported Cardiovascular: No symptoms reported Respiratory: No symptoms reported Gastrointestinal: No symptoms reported Genitourinary: No symptoms reported Female Genitourinary: No symptoms reported Musculoskeletal: Ankle swelling Skin: No symptoms reported Hematologic/Lymphatic: No symptoms reported Neurological/Psychological: No symptoms reported -: Yes All other systems reviewed and negative Physical Exam - Vital signs Vitals: Temp Pulse Resp BP Pulse Ox 98.2 F 85 14 159/94 H 99 05/04/18 13:53 05/04/18 13:53 05/04/18 13:53 05/04/18 13:53 05/04/18 13:53 Interpretation: Normal - General General appearance: Appears well, Alert - HEENT Head: Normocephalic, Atraumatic Eyes: Normal Pupils: PERRL - Respiratory Respiratory status: No respiratory distress Chest status: Nontender Breath sounds: Normal Chest palpation: Normal - Cardiovascular Rhythm: Regular Heart sounds: Normal auscultation Murmur: No - Abdominal Inspection: Normal Distension: No distension Bowel sounds: Normal Tenderness: Nontender Organomegaly: No organomegaly - Back Back: Normal, Nontender - Extremities General upper extremity: Normal inspection, Nontender, Normal color, Normal ROM , Normal temperature General lower extremity: Normal ROM, Normal temperature, Normal weight bearing. No: Kaiser's sign Ankle: Tender, Ecchymosis, Edema, Limited ROM - Has full plantar flexion and dorsiflexion difficulty with eversion. No: Abrasion, Deformity, Instability, Laceration, Positive Horvath's test Foot: Tender - Neurological Neuro grossly intact: Yes Cognition: Normal Orientation: AAOx4 [place] Coma Scale Eye Opening: Spontaneous [place] Coma Scale Verbal: Oriented [place] Coma Scale Motor: Obeys Commands [place] Coma Scale Total: 15 Speech: Normal Motor strength normal: LUE, RUE, LLE, RLE Sensory: Normal - Psychological Associated symptoms: Normal affect, Normal mood - Skin Skin Temperature: Warm Skin Moisture: Dry Skin Color: Normal Course - Vital Signs Vital signs: Temp Pulse Resp BP Pulse Ox 98.6 F 75 20 151/96 H 100 05/04/18 16:51 05/04/18 16:51 05/04/18 16:51 05/04/18 16:51 05/04/18 16:51 - Diagnostic Test Radiology reviewed: Image reviewed, Reports reviewed Procedures - Immobilization Left Ankle Time completed: 16:55 Immobilizer type: José Manuel wrap, Crutches - Refused crutches Performed by: YANET Post-Proc Neuro Vasc Exam: Normal Alignment checked and good: Yes Discharge - Discharge Clinical Impression: Leg swelling Left ankle sprain Qualifiers: Encounter type: initial encounter Involved ligament of ankle: unspecified ligament Qualified Code(s): S93.402A - Sprain of unspecified ligament of left ankle, initial encounter Condition: Stable Disposition: HOME, SELF-CARE Additional Instructions: SPRAINED ANKLE: Your sprained ankle results from stretching or tearing of the ligaments which support the ankle. This usually results from twisting the foot inward and under. The ligaments will require time and protection in order to heal properly. Many ankle sprains are quite disabling, and should be taken seriously. The usual treatment for an ankle sprain is cold packs; protection with tape , splints, or wraps; elevation; and staying off the ankle for at least a day. As the ankle improves, you can walk IF it's not painful to bear weight. Sports are best postponed until healing is complete. More serious sprains usually require strengthening exercises after early healing. Your physician has assessed the seriousness of the ligament injury to your ankle. However, the treatment may change, depending on how your ankle progresses. If further exams were recommended, it is important that you follow through. Call the doctor if your foot becomes numb, painful, or severely swollen. JOSÉ MANUEL WRAP: A compression dressing (josé manuel wrap) has been placed. This helps hold the area still. It limits swelling and internal bleeding. The wrap should be comfortably snug -- not tight. You should feel a sense of pressure, but not severe pain under the wrap. Unless the physician tells you otherwise, you can adjust the wrap for comfort. If the wrap causes symptoms suggesting it's too tight -- uncomfortable pressure, swelling or discoloration beyond the wrap, numbness, or severe pain - - you must loosen the wrap. If these symptoms don't resolve promptly, return for re-evaluation. USE OF CRUTCHES: The doctor has recommended that you not bear weight at this time. You will need to use crutches. Adjust the crutches so the tops come to about two inches under the armpit while you are standing upright. Use your hands -- not your armpits -- to support your weight. To get into a chair, support yourself with one crutch on the injured side. Hold the chair with the other hand, then lower yourself while putting all your weight on the good leg. Going up stairs is `good leg up, step up, then bring up crutches and bad leg.' Down stairs is `bad leg and crutches down, then bring good leg down.' If you develop numbness or swelling in an arm or hand, you are using the crutches incorrectly. Return if you are having any problems with the crutches. ICE & ELEVATION: Apply ice packs frequently against the painful area. Many different schedules are recommended, such as "20 minutes on, 20 minutes off" or "one hour ice, two hours rest." If you need to work, you may need to go longer between ice treatments. You should plan to have the area ice packed AT LEAST one- fourth of the time. The ice should be applied over the wrap, tape, or splint, or over a layer of cloth -- not directly against the skin. Some ice bags have a built-in cloth and can be put directly on the skin. Your injured part should be elevated as much as possible over the next 48 hours. Try to keep the injury above the level of the heart. Avoid use of the injured area. Elevation and rest will decrease the swelling. Acetaminophen Acetaminophen may be taken for pain relief or fever control. It's much safer than aspirin, offering a wider range of "safe" dosages. It is safe during . Some brand names are Tylenol, Panadol, Datril, Anacin 3, Tempra, and Liquiprin. Acetaminophen can be repeated every four hours. The following are maximum recommended dosages: WEIGHT Dose Drops Elixir Chewable( 80mg) (LBS.) drprs=droppers tsp=teaspoon 6 40 mg .4 ml (1/2) 6-11 80 mg .8 ml (full) 1/2 tsp 1 tab 12-16 120 mg 1 1/2 drprs 3/4 tsp 1 1/2 tabs 17-23 160 mg 2 drprs 1 tsp 2 tabs 24-30 240 mg 3 drprs 1 1/2 tsp 3 tabs 30-35 320 mg 2 tsp 4 tabs 36-41 360 mg 2 1/4 tsp 4 1 /2 tabs 42-47 400 mg 2 1/2 tsp 5 tabs 48-53 480 mg 3 tsp 6 tabs 54-59 520 mg 3 1/4 tsp 6 1 /2 tabs 60-64 560 mg 3 1/2 tsp 7 tabs 65-70 600 mg 3 3/4 tsp 7 1 /2 tabs 71-76 640 mg 4 tsp 8 tabs 77-82 720 mg 4 1/2 tsp 9 tabs 83-88 800 mg 5 tsp 10 tabs >89 pounds or adults 650 mg to 900 mg Acetaminophen can be repeated every four hours. Maximum daily dose not to exceed 4000 mg. These maximum recommended dosages are slightly higher than the dosages written on the product container, but these dosages are very safe and well below the toxic dosage for acetaminophen. FOLLOW-UP CARE: If you have been referred to a physician for follow-up care, call the physician s office for an appointment as you were instructed or within the next two days. If you experience worsening or a significant change in your symptoms, notify the physician immediately or return to the Emergency Department at any time for re-evaluation. Forms: Elevated Blood Pressure Referrals: KESHA TROY FNP-C [Primary Care Provider] - Follow up as needed [facility] [Provider Group] - Follow up as needed
[2018-05-04 16:52] VITALS: BP 151/96
== END 2018-05-04 16:52 | disposition home or self-care (01) ==
LOC: ER 13:35
DX: S93.402A Sprain of unspecified ligament of left ankle, initial encounter (principal); M79.89 Other specified soft tissue disorders; W01.0XXA Fall on same level from slipping, tripping and stumbling without subsequent striking against object, initial encounter; I10 Essential (primary) hypertension
CPT/HCPCS: 99283

== ENCOUNTER 2018-07-09 19:11 | Emergency (ER) | payer OTHER ==
--- NOTE | 2018-07-09 21:42 | ER Document Report ---
ED Medical Screen (RME) - General Chief Complaint: Blood Pressure Problem Stated Complaint: DIZZINESS,HEADACHE,BP ISSUES Time Seen by Provider: 07/09/18 21:38 Primary Care Provider: KESHA TROY FNP-C [Primary Care Provider] - Follow up as needed Notes: 48-year-old -[place] female coming in today with elevated blood pressure readings. Ran out of amlodipine but did get a refill by her doctor. Having in termittent slight dizziness and headache today. Also feeling mildly short of breath. I have treated and performed a rapid initial assessment of this patient. A comprehensive ED assessment and evaluation of the patient, analysis of test results and completion of medical decision making process will be conducted by additional ED providers. PHYSICAL EXAMINATION: GENERAL: Well-appearing, well-nourished and in no acute distress. A&Ox4. Answers questions appropriately. LUNGS: Breath sounds clear to auscultation bilaterally and equal. No wheezes rales or rhonchi. HEART: Regular rate and rhythm without murmurs, rubs, gallops. ABDOMEN: Soft, nondistended abdomen. No guarding, no rebound. Normal bowel sounds present. No CVA tenderness bilaterally. + mild epigastric tenderness (cannot elicit thorough abd exam w/o table, however). Extremities: No cyanosis, clubbing, or edema b/l. NEUROLOGICAL: Normal speech, normal gait. PSYCH: Normal mood, normal affect. TRAVEL OUTSIDE OF THE [place] IN LAST 30 DAYS: No - Related Data Allergies/Adverse Reactions: ibuprofen [From Motrin] Allergy (Verified 05/14/17 20:16) metronidazole [From Flagyl] Allergy (Verified 05/14/17 20:16) Metronidazole HCl [From Flagyl] Allergy (Verified 05/14/17 20:16) seafood Allergy (Uncoded 05/14/17 20:16) Past Medical History - Past Medical History Cardiac Medical History: Reports: Hx Hypercholesterolemia, Hx Hypertension - meds x5 years, Lisinopril Rx'ed to treat renal disease Denies: Hx Coronary Artery Disease, Hx Heart Attack Pulmonary Medical History: Denies: Hx Asthma, Hx Bronchitis, Hx COPD, Hx Pneumonia Neurological Medical History: Denies: Hx Cerebrovascular Accident, Hx Seizures Renal/ Medical History: Reports: Hx Renal Insufficiency. Denies: Hx Peritoneal Dialysis Musculoskeltal Medical History: Denies Hx Arthritis, Reports Hx Musculoskeletal Trauma Past Surgical History: Reports: Hx Section, Hx Cholecystectomy, Hx Herniorrhaphy, Hx Hysterectomy, Hx Orthopedic Surgery - Arthroscopic left knee surgery for torn meniscus - Immunizations Hx Diphtheria, Pertussis, Tetanus Vaccination: No History of Influenza Vaccine for 03/2017 - 07/2017 Season: Yes Influenza Administration Date for 03/2017 - 07/2017 Season: 03/02/17 Physical Exam - Vital signs Vitals: Temp Pulse Resp BP Pulse Ox 98.6 F 88 14 175/96 H 100 07/09/18 19:54 07/09/18 19:54 07/09/18 19:54 07/09/18 19:54 07/09/18 19:54 Course - Vital Signs Vital signs: Temp Pulse Resp BP Pulse Ox 98.6 F 88 14 175/96 H 100 07/09/18 19:54 07/09/18 19:54 07/09/18 19:54 07/09/18 19:54 07/09/18 19:54 Doctor's Discharge - Discharge Referrals: KESHA TROY SCREEDMAN/LABORER-C [Primary Care Provider] - Follow up as needed
[2018-07-09 22:44] LABS: ABSOLUTE EOSINOPHILS # (AUTO) 0.2 10^3/uL (0.0-0.6); ABSOLUTE LYMPHOCYTES (AUTO) 2.8 10^3/uL (0.5-4.7); ABSOLUTE MONOCYTES (AUTO) 0.5 10^3/uL (0.1-1.4); BASOPHILS % (AUTO) 0.5 % (0-2); EOSINOPHILS % (AUTO) 3.5 % (0-6); HEMATOCRIT 33.7 % (36.0-47.0); HEMOGLOBIN 11.4 g/dL (12.0-15.5); LYMPHOCYTES % (AUTO) 50.1 % (13-45); MEAN CORPUSCULAR HEMOGLOBIN 26.9 pg (27.0-33.4); MEAN CORPUSCULAR HGB CONC 33.7 g/dL (32.0-36.0); MEAN CORPUSCULAR VOLUME 80 fl (80-97); MONOCYTES % (AUTO) 9.1 % (3-13); PLATELET COUNT 387 10^3/uL (150-450); RED BLOOD COUNT 4.22 10^6/uL (3.72-5.28); RED CELL DISTRIBUTION WIDTH 15.1 % (11.5-14.0); SEGMENTED NEUTROPHILS % (AUTO) 36.8 % (42-78); TOTAL CELLS COUNTED % (AUTO) 100 %; WHITE BLOOD COUNT 5.6 10^3/uL (4.0-10.5)
[2018-07-09 22:54] LABS: APPEARANCE,URINE SLIGHTLY-CLOUDY; BILIRUBIN,URINE NEGATIVE (NEGATIVE); COLOR,URINE YELLOW; GLUCOSE, URINE NEGATIVE (NEGATIVE); KETONES,URINE NEGATIVE (NEGATIVE); LEUKOCYTE ESTERASE,URINE NEGATIVE (NEGATIVE); NITRITE,URINE NEGATIVE (NEGATIVE); PROTEIN,URINE 100 mg/dL (NEGATIVE); UROBILINOGEN,URINE NEGATIVE mg/dL (<2.0)
[2018-07-09 23:00] LABS: ALANINE AMINOTRANSFERASE 16 U/L (9-52); ALKALINE PHOSPHATASE 91 U/L (38-126); ANION GAP 9 (5-19); ASPARTATE AMINO TRANSFERASE 16 U/L (14-36); BILIRUBIN,DIRECT 0.2 mg/dL (0.0-0.4); BILIRUBIN,TOTAL 0.3 mg/dL (0.2-1.3); BLOOD UREA NITROGEN 10 mg/dL (7-20); CALCIUM 9.5 mg/dL (8.4-10.2); CARBON DIOXIDE 28 mmol/L (22-30); CHLORIDE 102 mmol/L (98-107); GLUCOSE 100 mg/dL (75-110); POTASSIUM 4.2 mmol/L (3.6-5.0); SODIUM 139.4 mmol/L (137-145); TOTAL PROTEIN 7.5 g/dL (6.3-8.2)
--- NOTE | 2018-07-10 03:30 | ER Document Report ---
ED General - General Chief Complaint: Blood Pressure Problem Stated Complaint: DIZZINESS,HEADACHE,BP ISSUES Time Seen by Provider: 07/09/18 21:38 Primary Care Provider: KESHA TROY FNP-C [Primary Care Provider] - 07/13/18 Notes: Patient is a pleasant 48-year-old female who presents with complaint of a headache. She says the headache started approximately a week ago. She says is gradual in onset and since then has just been a steady pressure in her head with some burning into her neck. No focal weakness or numbness. No fevers. No vomiting. She said she had ran out of her amlodipine. She had it refilled on Friday. She said despite taking it her blood pressures is still continue to run high. Systolically she has been running mainly in the 170s. She denies any injury or trauma to her head. No chest pain. No shortness of breath. No abdominal pain. No other complaints at this time. TRAVEL OUTSIDE OF THE [place] IN LAST 30 DAYS: No - Related Data Allergies/Adverse Reactions: ibuprofen [From Motrin] Allergy (Verified 05/14/17 20:16) metronidazole [From Flagyl] Allergy (Verified 05/14/17 20:16) Metronidazole HCl [From Flagyl] Allergy (Verified 05/14/17 20:16) seafood Allergy (Uncoded 05/14/17 20:16) Past Medical History - Social History Smoking Status: Never Smoker Frequency of alcohol use: None Drug Abuse: None Family History: DM, Hypertension, Malignancy - Past Medical History Cardiac Medical History: Reports: Hx Hypercholesterolemia, Hx Hypertension - meds x5 years, Lisinopril Rx'ed to treat renal disease Denies: Hx Coronary Artery Disease, Hx Heart Attack Pulmonary Medical History: Denies: Hx Asthma, Hx Bronchitis, Hx COPD, Hx Pneumonia Neurological Medical History: Denies: Hx Cerebrovascular Accident, Hx Seizures Renal/ Medical History: Reports: Hx Renal Insufficiency. Denies: Hx Peritoneal Dialysis Musculoskeletal Medical History: Denies Hx Arthritis, Reports Hx Musculoskeletal Trauma Past Surgical History: Reports: Hx Section, Hx Cholecystectomy, Hx Herniorrhaphy, Hx Hysterectomy, Hx Orthopedic Surgery - Arthroscopic left knee surgery for torn meniscus - Immunizations Hx Diphtheria, Pertussis, Tetanus Vaccination: No Review of Systems - Review of Systems Notes: My Normal Review Basic REVIEW OF SYSTEMS: CONSTITUTIONAL : Denies fever, chills, or sweats. Denies recent illness. EENT: Denies eye, ear, throat, or mouth pain or symptoms. Denies nasal or s inus congestion. CARDIOVASCULAR: Denies chest pain. RESPIRATORY: Denies cough, cold, or chest congestion. Denies shortness of breath, difficulty breathing, or wheezing. GASTROINTESTINAL: Denies abdominal pain. Denies nausea, vomiting, or diarrhea. MUSCULOSKELETAL: Denies neck or back pain or joint pain or swelling. SKIN: Denies rash or skin lesions. NEUROLOGICAL: Denies altered mental status or loss of consciousness. Has a headache. Denies weakness or paralysis or loss of use of either side. Denies problems with gait or speech. Denies sensory or motor loss. ALL OTHER SYSTEMS REVIEWED AND NEGATIVE. Physical Exam - Vital signs Vitals: Temp Pulse Resp BP Pulse Ox 98.6 F 88 14 175/96 H 100 07/09/18 19:54 07/09/18 19:54 07/09/18 19:54 07/09/18 19:54 07/09/18 19:54 - Notes Notes: General Appearance: Well nourished, alert, cooperative, no acute distress, no obvious discomfort. Well-appearing. Vitals: reviewed, See vital signs table. Head: no swelling or tenderness to the head Eyes: PERRL, EOMI, Conjuctiva clear Mouth: No decreasd moisture Neck: Supple, no neck tenderness, No thyromegaly Lungs: No wheezing, No rales, No rhonci, No accessory muscle use, good air exchange bilaterally. Heart: Normal rate, Regular rythm, No murmur, no rub Abdomen: Normal BS, soft, No rigidity, No abdominal tenderness, No guarding, no rebound, no abdominal masses, no organomegaly Extremities: strength 5/5 in all extremities, good pulses in all extremities, no swelling or tenderness in the extremities, no edema. Skin: warm, dry, appropriate color, no rash Neuro: speech clear, oriented x 3, normal affect, responds appropriately to questions. Renal nerves II through XII are intact. Distal sensation intact. Patient moves all extremities without difficulty. Normal gait. No focal neurologic deficits on exam. Course - Re-evaluation Re-evalutation: 07/10/18 05:39 On reevaluation patient's headache is gone. Blood pressure is much improved. She looks and says she feels much improved. She tolerate the losartan well. I will prescribe this for her to take in conjunction with other medications to give better blood pressure control. I do suspect her headache probably is related to ongoing hypertension. I do not suspect subarachnoid hemorrhage. Headache was gradual in onset not sudden onset. She has no associated neurologic deficits. She looks well. I encouraged her return to ER immediately if she has severe headache, vomiting, chest pain, shortness of breath, or she feels unwell in any way. Patient agrees with plan and will be discharged home. Dictation of this chart was performed using voice recognition software; therefore, there may be some unintended grammatical errors. - Vital Signs Vital signs: Temp Pulse Resp BP Pulse Ox 97.9 F 76 18 141/88 H 99 07/10/18 04:47 07/10/18 04:47 07/10/18 04:47 07/10/18 04:47 07/10/18 04:47 - Laboratory Result Diagrams: 07/09/18 22:05 07/09/18 22:05 Laboratory results interpreted by me: 07/09/18 07/09/18 22:05 22:05 Hgb 11.4 L Hct 33.7 L MCH 26.9 L RDW 15.1 H Seg Neutrophils % 36.8 L Lymphocytes % 50.1 H Urine Protein 100 H Urine Ascorbic Acid 40 H - EKG Interpretation by Me Additional EKG results interpreted by me: 07/10/18 03:30 EKG is reviewed and interpreted by me. EKG shows sinus rhythm with rate of [address] segment elevation or depression. No ischemic T wave inversions. OR interval, QRS duration, QT intervals are within normal range. Old EKG for comparison is from June 14, 2014. Discharge - Discharge Clinical Impression: Hypertension Qualifiers: Hypertension type: unspecified Qualified Code(s): I10 - Essential (primary) hypertension Headache Qualifiers: Headache type: unspecified Headache chronicity pattern: acute headache Intractability: not intractable Qualified Code(s): R51 - Headache Condition: Good Disposition: HOME, SELF-CARE Additional Instructions: I prescribed a new blood pressure medication to take in conjunction with your other medications. Please take it as prescribed. Please follow-up with your doctor this week for reevaluation so that they can review your new medication and determine if they need to make adjustment to it. Please return to the ER immediately if you have recurrent headache, vomiting, any chest pain, or if her blood pressure is increasing despite medications. Prescriptions: Losartan Potassium [Cozaar 25 mg Tablet] 25 mg PO DAILY #30 tablet Referrals: KESHA TROY, HAND BRAILLE TRANSCRIBER-C [Primary Care Provider] - 07/13/18
[2018-07-10] MEDS ORDERED: METOCLOPRAMIDE HCL INJ/PF 10 MG/2 ML SDV IM ONE (03:35)
[2018-07-10] MEDS ORDERED: LOSARTAN POTASSIUM 25 MG TABLET PO ONE (03:35)
[2018-07-10] MEDS ORDERED: HYDROCHLOROTHIAZIDE 25 MG TABLET PO ONE (03:36)
--- NOTE | 2018-07-10 04:35 | RADIOLOGY REPORT (SQ) ---
EXAM DESCRIPTION: CT HEAD WITHOUT IV CONTRAST COMPLETED DATE/TME: 07/10/2018 03:39 CLINICAL HISTORY: 48 years, Female, headache COMPARISON: None Available. Technique: Contiguous axial images of the brain were obtained without the administration of intravenous contrast. Coronal and sagittal reformats obtained and reviewed. This exam was performed according to our departmental dose-optimization program which includes use of Automated Exposure Control, adjustment of the mA and/or kV according to patient size and/or use of iterative reconstruction technique. Findings: Brain: No hemorrhage. No territorial infarct. No mass effect. No herniation. Ventricles: Within normal limits for patient's age. Bones: No acute osseous abnormality. Paranasal sinuses: Unremarkable. Mastoid air cells: Unremarkable. Soft tissues: No acute abnormality. IMPRESSION: No acute intracranial abnormalities.
[2018-07-10 05:53] VITALS: BP 146/104
--- NOTE | 2018-07-10 13:59 | EKG REPORT ---
SEVERITY:- ABNORMAL ECG - SINUS RHYTHM LEFT ATRIAL ABNORMALITY : Confirmed by: Leanna Watt 10-Jul-2018 13:58:18
== END 2018-07-10 05:53 | disposition home or self-care (01) ==
LOC: ER 19:11
DX: I10 Essential (primary) hypertension (principal); R51 Headache; R42 Dizziness and giddiness; E78.00 Pure hypercholesterolemia, unspecified; Z88.6 Allergy status to analgesic agent; Z90.49 Acquired absence of other specified parts of digestive tract; Z90.710 Acquired absence of both cervix and uterus
CPT/HCPCS: 93005; 99284; 96372; 36415; 85025; 80053; 81001; 70450; 93010; J2765

== ENCOUNTER → 2019-01-11 | Outpatient (CLI) | payer OTHER ==
[2019-01-11 13:44] LABS: ABSOLUTE EOSINOPHILS # (AUTO) 0.1 10^3/uL (0.0-0.6); ABSOLUTE LYMPHOCYTES (AUTO) 1.9 10^3/uL (0.5-4.7); ABSOLUTE MONOCYTES (AUTO) 0.5 10^3/uL (0.1-1.4); BASOPHILS % (AUTO) 0.7 % (0-2); EOSINOPHILS % (AUTO) 2.8 % (0-6); HEMOGLOBIN 10.7 g/dL (12.0-15.5); MEAN CORPUSCULAR HEMOGLOBIN 26.5 pg (27.0-33.4); MEAN CORPUSCULAR HGB CONC 33.3 g/dL (32.0-36.0); MEAN CORPUSCULAR VOLUME 80 fl (80-97); MONOCYTES % (AUTO) 10.2 % (3-13); PLATELET COUNT 369 10^3/uL (150-450); RED BLOOD COUNT 4.02 10^6/uL (3.72-5.28); RED CELL DISTRIBUTION WIDTH 14.3 % (11.5-14.0); SEGMENTED NEUTROPHILS % (AUTO) 44.3 % (42-78); TOTAL CELLS COUNTED % (AUTO) 100 %; WHITE BLOOD COUNT 4.4 10^3/uL (4.0-10.5)
[2019-01-11 13:45] LABS: APPEARANCE,URINE SLIGHTLY-CLOUDY; BILIRUBIN,URINE NEGATIVE (NEGATIVE); COLOR,URINE YELLOW; GLUCOSE, URINE NEGATIVE (NEGATIVE); KETONES,URINE NEGATIVE (NEGATIVE); LEUKOCYTE ESTERASE,URINE NEGATIVE (NEGATIVE); NITRITE,URINE NEGATIVE (NEGATIVE); PROTEIN,URINE 100 mg/dL (NEGATIVE); URINE SPECIFIC GRAVITY 1.017; UROBILINOGEN,URINE NEGATIVE mg/dL (<2.0)
[2019-01-11 14:02] LABS: URINE CREATININE 141.3 mg/dL (15-278)
[2019-01-11 14:03] LABS: ALBUMIN 3.9 g/dL (3.5-5.0); ANION GAP 8 (5-19); BLOOD UREA NITROGEN 12 mg/dL (7-20); CALCIUM 9.5 mg/dL (8.4-10.2); CARBON DIOXIDE 29 mmol/L (22-30); CHLORIDE 102 mmol/L (98-107); GLUCOSE 94 mg/dL (75-110); IRON(TIBC) 40.6 ug/dL (37-170); POTASSIUM 4.1 mmol/L (3.6-5.0)
[2019-01-11 14:10] LABS: UR PRO/CREAT RATIO RESULT 1.8 mg/mg (0.0-0.2); URINE PROTEIN 255.1 mg/dL (<12)
== END ==
LOC: OD 12:47
PROVIDERS: ATTEND Internal Medicine Nephrology
DX: N05.2 Unspecified nephritic syndrome with diffuse membranous glomerulonephritis (principal); D50.9 Iron deficiency anemia, unspecified; E55.9 Vitamin D deficiency, unspecified; R80.9 Proteinuria, unspecified
CPT/HCPCS: 36415; 80048; 81001; 82040; 82306; 82570; 82728; 83540; 83550; 84156; 85025

== ENCOUNTER → 2019-02-18 | Outpatient (CLI) | payer OTHER ==
[2019-02-18 16:08] LABS: ANION GAP 9 (5-19); BLOOD UREA NITROGEN 15 mg/dL (7-20); CALCIUM 9.5 mg/dL (8.4-10.2); CARBON DIOXIDE 27 mmol/L (22-30); CHLORIDE 104 mmol/L (98-107); GLUCOSE 111 mg/dL (75-110); POTASSIUM 4.3 mmol/L (3.6-5.0)
== END ==
LOC: OD 15:13
PROVIDERS: ATTEND Internal Medicine Nephrology
DX: I12.9 Hypertensive chronic kidney disease with stage 1 through stage 4 chronic kidney disease, or unspecified chronic kidney disease (principal); N18.1 Chronic kidney disease, stage 1; R60.9 Edema, unspecified
CPT/HCPCS: 36415; 80048

== ENCOUNTER → 2019-05-12 | Outpatient (CLI) | payer OTHER ==
[2019-05-12 13:55] LABS: APPEARANCE,URINE SLIGHTLY-CLOUDY; BILIRUBIN,URINE NEGATIVE (NEGATIVE); COLOR,URINE YELLOW; GLUCOSE, URINE NEGATIVE (NEGATIVE); KETONES,URINE NEGATIVE (NEGATIVE); LEUKOCYTE ESTERASE,URINE NEGATIVE (NEGATIVE); NITRITE,URINE NEGATIVE (NEGATIVE); PROTEIN,URINE 100 mg/dL (NEGATIVE); URINE SPECIFIC GRAVITY 1.023; UROBILINOGEN,URINE NEGATIVE mg/dL (<2.0)
[2019-05-12 13:55] LABS: ABSOLUTE EOSINOPHILS # (AUTO) 0.1 10^3/uL (0.0-0.6); ABSOLUTE LYMPHOCYTES (AUTO) 2.3 10^3/uL (0.5-4.7); ABSOLUTE MONOCYTES (AUTO) 0.5 10^3/uL (0.1-1.4); BASOPHILS % (AUTO) 0.4 % (0-2); EOSINOPHILS % (AUTO) 2.4 % (0-6); HEMATOCRIT 32.2 % (36.0-47.0); HEMOGLOBIN 11.1 g/dL (12.0-15.5); LYMPHOCYTES % (AUTO) 38.1 % (13-45); MEAN CORPUSCULAR HEMOGLOBIN 27.7 pg (27.0-33.4); MEAN CORPUSCULAR HGB CONC 34.5 g/dL (32.0-36.0); MEAN CORPUSCULAR VOLUME 80 fl (80-97); MONOCYTES % (AUTO) 8.1 % (3-13); PLATELET COUNT 388 10^3/uL (150-450); RED BLOOD COUNT 4.02 10^6/uL (3.72-5.28); RED CELL DISTRIBUTION WIDTH 14.6 % (11.5-14.0); TOTAL CELLS COUNTED % (AUTO) 100 %
[2019-05-12 14:18] LABS: ANION GAP 11 (5-19); BLOOD UREA NITROGEN 13 mg/dL (7-20); CALCIUM 9.8 mg/dL (8.4-10.2); CARBON DIOXIDE 27 mmol/L (22-30); CHLORIDE 101 mmol/L (98-107); GLUCOSE 103 mg/dL (75-110); IRON(TIBC) 45.3 ug/dL (37-170); POTASSIUM 4.2 mmol/L (3.6-5.0)
[2019-05-12 14:20] LABS: URINE CREATININE 268.9 mg/dL (15-278)
[2019-05-12 14:34] LABS: UR PRO/CREAT RATIO RESULT 1.1 mg/mg (0.0-0.2); URINE PROTEIN 283.1 mg/dL (<12)
== END ==
LOC: OD 13:11
PROVIDERS: ATTEND Internal Medicine Nephrology
DX: I12.9 Hypertensive chronic kidney disease with stage 1 through stage 4 chronic kidney disease, or unspecified chronic kidney disease (principal); N18.1 Chronic kidney disease, stage 1
CPT/HCPCS: 36415; 80048; 81001; 82570; 82607; 82728; 82746; 83540; 83550; 84156; 85025